=== PATIENT | male | born 1935 | race Caucasian/White ===

== ENCOUNTER → 2024-06-02 | Outpatient (CLI) | payer OTHER ==
[~2024-06-02] MED LIST: TRIA25CA
[2024-06-02 09:56] LABS: Urine Bacteria None Seen /hpf (None Seen)
[2024-06-02 10:49] LABS: Basophils # (auto) 0 10 ^3/uL (0-0.2); Eosinophils # (auto) 0.2 10 ^3/uL (0-0.8); Hemoglobin 13.1 g/dL (13.5-17.5); Mean Corpuscular Hgb Conc. 34.4 g/dL (32.0-36.0); Mean Corpuscular Volume 101.6 fL (80.0-100.0); Monocytes # (auto) 0.3 10 ^3/uL (0-1.3); Nucleated Red Blood Cells % 0.1 %; Red Blood Cells 3.74 10^6/uL (4.5-5.90); White Blood Cell 3.6 10^3/uL (4.4-10.8)
[2024-06-02 10:52] LABS: Basophils % (auto) 0.8 % (0.0-2.0); Eosinophils % (auto) 4.3 % (0.0-7.0); Lymphocytes # (auto) 1.3 10 ^3/uL (0.4-5.4); Lymphocytes % (auto) 34.5 % (10.0-50.0); Mean Corpuscular Hemoglobin 34.9 pg (28.0-32.0); Monocytes % (auto) 9.1 % (0.0-12.0); Neutrophils # (auto) 1.9 10 ^3/uL (1.6-8.6); Neutrophils % (auto) 51.3 % (37.0-80.0); Platelet Count (auto) 163 10^3/uL (140-450); Red Cell Distribution Width 13.6 % (11.8-14.3)
[2024-06-02 11:14] LABS: Alanine Aminotransferase 19 U/L (7-40); Alkaline Phosphatase 110 U/L (46-116); Anion Gap 9 (5-15); Aspartate Aminotransferase 19 U/L (13-40); Calcium 9.6 mg/dL (8.7-10.4); Carbon Dioxide 26 mmol/L (20-31); Chloride 107 mmol/L (98-107); Potassium 4.6 mmol/L (3.5-5.1); Sodium 142 mmol/L (136-145)
[2024-06-02 11:15] LABS: BUN/Creatinine Ratio 18.4 (10.0-20.0); Blood Urea Nitrogen 19 mg/dL (9-23); Glucose 103 mg/dL (74-106); Total Protein 6.7 g/dL (5.7-8.2)
[2024-06-02 11:16] LABS: Albumin 4.3 g/dL (3.2-4.8)
[2024-06-02 11:17] LABS: Bilirubin, Total 0.6 mg/dL (0.2-1.0)
[2024-06-02 12:15] LABS: Triglycerides 132 mg/dL (< 150)
[2024-06-02 12:16] LABS: LDL Cholesterol 52 mg/dL (< 100)
[2024-06-02 12:17] LABS: Cholesterol 108 mg/dL (< 200)
[2024-06-02 12:18] LABS: HDL Cholesterol 39 mg/dL (40-59)
[2024-06-02 16:02] LABS: Urine Blood Negative /uL (Negative); Urine Clarity Clear (Clear); Urine Color Light-Yellow (Yellow); Urine Mucus FEW (None Seen); Urine Protein, UAD Negative (Negative); Urine Specific Gravity 1.019 (1.001-1.035); Urine Squamous Epithelial Cell None Seen /hpf (<5); Urine Urobilinogen Normal (Negative); Urine WBC < 1 /HPF (0-3)
== END | disposition home or self-care (01) ==
LOC: LAB 09:44
PROVIDERS: ATTEND Internal Medicine
DX: I10 Essential (primary) hypertension (principal); I70.0 Atherosclerosis of aorta; E78.5 Hyperlipidemia, unspecified; R73.03 Prediabetes; Z00.01 Encounter for general adult medical examination with abnormal findings; Z83.3 Family history of diabetes mellitus
CPT/HCPCS: 36415; 80053; 80061; 81001; 83036; 84439; 84443; 85025

== ENCOUNTER → 2024-07-24 | Outpatient (CLI) | payer OTHER ==
[2024-07-24 11:56] LABS: Calcium 9.7 mg/dL (8.7-10.4); Chloride 107 mmol/L (98-107); Potassium 4.7 mmol/L (3.5-5.1); Sodium 143 mmol/L (136-145)
[2024-07-24 11:57] LABS: Anion Gap 8 (5-15); Carbon Dioxide 28 mmol/L (20-31)
[2024-07-24 12:02] LABS: BUN/Creatinine Ratio 17.9 (10.0-20.0); Blood Urea Nitrogen 19 mg/dL (9-23)
[2024-07-24 12:04] LABS: Glucose 110 mg/dL (74-106)
[2024-07-24 12:06] LABS: Folate (Folic Acid) 19.92 ng/mL (>5.38)
== END | disposition home or self-care (01) ==
LOC: LAB 10:37
PROVIDERS: ATTEND Internal Medicine
DX: I10 Essential (primary) hypertension (principal); D53.9 Nutritional anemia, unspecified; R94.4 Abnormal results of kidney function studies
CPT/HCPCS: 36415; 80048; 82607; 82746

== ENCOUNTER 2024-09-08 09:04 | Outpatient (CLI) | payer OTHER ==
[2024-09-08 09:52] LABS: Anion Gap 8 (5-15); Calcium 9.9 mg/dL (8.7-10.4); Carbon Dioxide 28 mmol/L (20-31); Potassium 4.6 mmol/L (3.5-5.1); Sodium 144 mmol/L (136-145)
[2024-09-08 09:54] LABS: Basophils # (auto) 0 10 ^3/uL (0-0.2); Eosinophils # (auto) 0.2 10 ^3/uL (0-0.8); Hemoglobin 13.3 g/dL (13.5-17.5); Monocytes # (auto) 0.3 10 ^3/uL (0-1.3); Platelet Count (auto) 150 10^3/uL (140-450); White Blood Cell 3.1 10^3/uL (4.4-10.8)
[2024-09-08 09:57] LABS: Basophils % (auto) 1.4 % (0.0-2.0); Eosinophils % (auto) 5.6 % (0.0-7.0); Lymphocytes # (auto) 1.6 10 ^3/uL (0.4-5.4); Mean Corpuscular Hemoglobin 34.8 pg (28.0-32.0); Mean Corpuscular Volume 99.3 fL (80.0-100.0); Monocytes % (auto) 8.9 % (0.0-12.0); Neutrophils % (auto) 33.1 % (37.0-80.0); Nucleated Red Blood Cells % 0.2 %; Red Blood Cells 3.82 10^6/uL (4.5-5.90); Red Cell Distribution Width 13.6 % (11.8-14.3)
[2024-09-08 09:58] LABS: BUN/Creatinine Ratio 19.6 (10.0-20.0); Blood Urea Nitrogen 22 mg/dL (9-23); Glucose 96 mg/dL (74-106); Triglycerides 106 mg/dL (< 150)
[2024-09-08 09:59] LABS: LDL Cholesterol 61 mg/dL (< 100)
[2024-09-08 10:00] LABS: Cholesterol 109 mg/dL (< 200)
[2024-09-08 10:03] LABS: Chloride 108 mmol/L (98-107); HDL Cholesterol 32 mg/dL (40-59)
== END 2024-09-08 17:00 | disposition home or self-care (01) ==
LOC: LAB 09:04
PROVIDERS: ATTEND Internal Medicine
DX: I10 Essential (primary) hypertension (principal); E78.2 Mixed hyperlipidemia; R73.03 Prediabetes; R94.4 Abnormal results of kidney function studies
CPT/HCPCS: 36415; 80048; 80061; 85025

== ENCOUNTER 2024-10-04 22:20 | Inpatient (IN) | payer OTHER ==
[~2024-10-04] VITALS: Ht 177.8 cm; Wt 84.9 kg
--- NOTE | 2024-10-04 22:42 | ECG ---
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
[2024-10-04 22:59] LABS: Hematocrit 36.4 % (41.0-53.0); Hemoglobin 12.6 g/dL (13.5-17.5); Mean Corpuscular Hemoglobin 34.0 pg (28.0-32.0); Mean Corpuscular Volume 98.2 fL (80.0-100.0); Nucleated Red Blood Cells % 0.0 %
[2024-10-04 23:14] LABS: INR 1.18 (0.9-1.15); Partial Thromboplastin Time 29.6 SEC (24.5-34.5); Prothrombin Time 12.3 sec (9.3-11.8)
[2024-10-04 23:15] LABS: Alanine Aminotransferase 16 U/L (7-40); Albumin 4.2 g/dL (3.2-4.8); Alkaline Phosphatase 83 U/L (46-116); Anion Gap 15 (5-15); BUN/Creatinine Ratio 24.0 (10.0-20.0); Blood Urea Nitrogen 23 mg/dL (9-23); Calcium 8.7 mg/dL (8.7-10.4); Chloride 101 mmol/L (98-107); Potassium 3.7 mmol/L (3.5-5.1); Total Protein 6.4 g/dL (5.7-8.2)
--- NOTE | 2024-10-04 23:17 | DVH ---
CHEST RADIOGRAPH Indication: Shortness of breath Technique: Single frontal view of the chest was obtained COMPARISON: None FINDINGS: Lines and Tubes: None Lungs: Mild bibasilar subsegmental atelectasis/consolidation. Pleura: No effusion. No pneumothorax. Cardiomediastinal contours: Unremarkable IMPRESSION: Mild bibasilar subsegmental atelectasis/consolidation.
[2024-10-04 23:18] LABS: Bilirubin, Total 1.5 mg/dL (0.2-1.0); Carbon Dioxide 17 mmol/L (20-31); Glucose 144 mg/dL (74-106); Sodium 133 mmol/L (136-145)
[2024-10-04 23:35] LABS: Urine Protein, UAD 1+ (Negative)
[2024-10-04] MEDS: AZITHROMYCIN 500MG/ 250ML 250 ML IV ONE (23:52)
[2024-10-05] MEDS ORDERED: AMPICILLIN & SULBACTAM SODIUM 3 GM in SODIUM CHL 0.9% 100 ML IV SCH
[2024-10-05] MEDS: cefTRIAXone 1GM/50ML D5W 50 ML IV ONE ×2 (00:39→00:40)
--- NOTE | 2024-10-05 02:19 | ED.PDOC ---
History of Present Illness HPI Comments This patient is an 89-year-old male who was brought by ambulance to the facility today due to complaints of generalized weakness and urine retention issues. Patient states he has not passed much urine for the past four days. Patient denies any fever nausea or vomiting. Patient's abdomen appears to be distended and additionally, patient appears to be in poor overall health. Chief Complaint: General Weakness Time Seen by MD: 02:10 Reviewed Notes: Nurses Notes, Medications, Allergies Allergies: Coded Allergies: NO KNOWN ALLERGIES (Unverified , 05/16/11) Home Meds Reported Medications Hydrochlorothiazide W/Triamter (Hctz/Triamterene) 1 Cap Cap 05/16/11 Information Source: Patient, Emergency Med Personnel Mode of Arrival: EMS Severity: Moderate Timing: Hours Duration: Since onset Prehospital treatment: 12 Lead EKG, Accucheck, Fmd Teacher Past Medical History PAST MEDICAL HISTORY: HTN Surgical History: Denies all surgeries Family History Family History: Reviewed,noncontributory to illness, No family hx of Cancer, No family hx of DM, No family hx of Heart jackie, No family hx of HTN, No family hx ofKidney jackie, No family hx of Liver jackie, No family hx of Lung jackie, No family hx of Stroke Social History Smoker: Cigarettes Alcohol: Denies ETOH Use Drugs: Denies Drug Use Lives In: Home Constitutional: reports: weakness; denies: chills, diaphoresis, fatigue, fever, malaise, sweats, others EENTM: denies: blurred vision, double vision, ear bleeding, ear discharge, ear drainage, ear pain, ear ringing, eye pain, eye redness, hearing loss, mouth pain, mouth swelling, nasal discharge, nose bleeding, nose congestion, nose pain, photophobia, tearing, throat pain, throat swelling, voice changes, others Respiratory: denies: cough, hemoptysis, orthopnea, SOB at rest, shortness of breath, SOB with excertion, stridor, wheezing, others Cardiovascular: denies: chest pain, dizzy spells, diaphoresis, Dyspnea on exertion, edema, irregular heart beat, left arm pain, lightheadedness, palpitations, PND, syncope, others Gastrointestinal: reports: abdomen distended; denies: abdominal pain, blood streaked bowels, constipated, diarrhea, dysphagia, difficulty swallowing, hematemesis, melena, nausea, poor appetite, poor fluid intake, rectal bleeding, rectal pain, vomiting, others Genitourinary: reports: others (Urine retention); denies: burning, dysuria, fla nk pain, frequency, hematuria, incontinence, penile discharge, penile sore, pain, testicle pain, testicle swelling, urgency Neurological: denies: dizziness, fainting, headache, left sided numbness, left sided weakness, numbness, paresthesia, pre-existing deficit, right sided numbness, right sided weakness, seizure, speech problems, tingling, tremors, weakness, others Musculoskeletal: denies: back pain, gout, joint pain, joint swelling, muscle pain, muscle stiffness, neck pain, others Integumetry: denies: bruises, change in color, change in hair/nails, dryness, laceration, lesions, lumps, rash, wounds, others Allergic/Immunocompromised: denies: Difficulty Healing, Frequent Infections, Hives, Itching, others Hematologic/Lymphatic: denies: anemia, blood clots, easy bleeding, easy bruising, swollen glands, others Endocrine: denies: excessive hunger, excessive sweating, excessive thirst, excessive urination, flushing, intolerance to cold, intolerance to heat, unexplained weight gain, unexplained weight loss, others Psychiatric: denies: anxiety, bipolar disorder, depression, hopeless, panic disorder, schizophrenia, sleepless, suicidal, others All Other Systems: Reviewed and Negative (Comprehensive review of systems are negative unless stated in HPI) Physical Exam General Appearance: Moderate Distress (Moderate distress due to urine retention issues. Patient appears to be in poor overall health.), Normal HEENT: Normal ENT Inspection, Pharynx Normal, TMs Normal Neck: Full Range of Motion, Non-Tender, Normal, Normal Inspection Respiratory: Chest Non-Tender, Lungs Clear, No Accessory Muscle Use, No Respiratory Distress, Normal Breath Sounds Cardiovascular: No Edema, No JVD, No Murmur, No Gallop, Normal Peripheral Pulses, Regular Rate/Rhythm Breast Exam: Deferred Gastrointestinal: Other (Distended stomach was appreciated with tenderness to palpation throughout the overlying bladder. No signs of trauma.) Genitalia: Deferred Pelvic: Deferred Rectal: Deferred Extremities: No calf tenderness, Normal capillary refill, Normal inspection, Normal range of motion, Non-tender, No pedal edema Neurologic: Alert, No Motor Deficits, Normal Affect, Normal Mood, No Sensory Deficits Cerebellar Function: NOT DONE Reflexes: NOT DONE Skin: Dry, Normal Color, Warm Lymphatic: No Adenopathy Was a procedure done? Was a procedure done?: No EKG EKG : Pulse Rate (adult): 104 [place]: Normal Cardiac Rhythm: ST, PAC's Block: None Hypertrophy: None ST: Normal Differential Dx Considerations may include: Electrolyte imbalance, viral syndrome, dehydration, urethral obstruction, nephrolithiasis, cystitis, pyelonephritis, urinary tract infection, acute coronary syndrome, NM, bladder outlet obstruction, among others X-Ray, Labs, Meds, VS Vital Signs Date Time Temp Pulse Resp B/P (MAP) Pulse Ox O2 Delivery O2 Flow Rate FiO2 10/05/24 02:19 104 10/05/24 02:01 79 23 115/50 (71) 93 10/05/24 01:19 88 10/05/24 00:00 94 18 153/72 (99) 93 10/04/24 22:46 98.4 98 18 133/61 (85) 93 98.4 10/04/24 22:38 104 10/04/24 22:30 98.7 102 20 129/72 (91) 92 98.7 10/04/24 22:30 Room Air* 0 21 Lab Test 10/05/24 01:28 10/04/24 23:38 10/04/24 22:55 10/04/24 22:43 Range/Units Troponin I High Sensitivity 1247 *H 519 *H 173 *H </=54 ng/L Urine Color Colorless Yellow Urine Clarity Turbid H Clear Urine pH 5.5 5.0-9.0 Urine Specific [place] 1.013 1.001-1.035 Urine Protein 1+ H Negative Urine Ketones Trace Negative Urine Blood 2+ H Negative /uL Urine Nitrite Negative Negative Urine Bilirubin Negative Negative Urine Urobilinogen Normal Negative mg/dL Urine Leukocyte Esterase 2+ Negative /uL Urine RBC 3 0 - 3 /hpf Urine Microscopic WBC 41 H 0-3 /HPF Urine Squamous Epithelial Cells Few <5 /hpf Urine Bacteria Few H None Seen /hpf Urine Glucose Normal Normal mg/dL White Blood Count 8.3 4.4-10.8 10^3/uL Red Blood Count 3.71 L 4.5-5.90 10^6/uL Hemoglobin 12.6 L 13.5-17.5 g/dL Hematocrit 36.4 L 41.0-53.0 % Mean Corpuscular Volume 98.2 80.0-100.0 fL Mean Corpuscular Hemoglobin 34.0 H 28.0-32.0 pg Mean Corpuscular Hemoglobin Concent 34.7 32.0-36.0 g/dL Red Cell Distribution Width 13.0 11.8-14.3 % Platelet Count 137 L 140-450 10^3/uL Mean Platelet Volume 7.9 6.9-10.8 fL Neutrophils (%) (Auto) 92.4 H 37.0-80.0 % Lymphocytes (%) (Auto) 4.9 L 10.0-50.0 % Monocytes (%) (Auto) 2.6 0.0-12.0 % Eosinophils (%) (Auto) 0.0 0.0-7.0 % Basophils (%) (Auto) 0.1 0.0-2.0 % Neutrophils # (Auto) 7.7 1.6-8.6 10 ^3/uL Lymphocytes # (Auto) 0.4 0.4-5.4 10 ^3/uL Monocytes # (Auto) 0.2 0-1.3 10 ^3/uL Eosinophils # (Auto) 0 0-0.8 10 ^3/uL Basophils # (Auto) 0 0-0.2 10 ^3/uL Nucleated Red Blood Cells 0.0 % Prothrombin Time 12.3 H 9.3-11.8 sec Prothrombin Time INR 1.18 H 0.9-1.15 Activated Partial Thromboplast Time 29.6 24.5-34.5 SEC D-Dimer, Quantitative 2.15 H 0.0-0.49 mg/L FEU Sodium Level 133 L 136-145 mmol/L Potassium Level 3.7 3.5-5.1 mmol/L Chloride Level 101 98-107 mmol/L Carbon Dioxide Level 17 L 20-31 mmol/L Anion Gap 15 5-15 Blood Urea Nitrogen 23 9-23 mg/dL Creatinine 0.96 0.700-1.30 mg/dL Glomerular Filtration Rate Calc 76 >90 mL/min BUN/Creatinine Ratio 24.0 H 10.0-20.0 Serum Glucose 144 H 74-106 mg/dL Calcium Level 8.7 8.7-10.4 mg/dL Total Bilirubin 1.5 H 0.2-1.0 mg/dL Aspartate Amino Transferase (AST) 24 13-40 U/L Alanine Aminotransferase (ALT) 16 7-40 U/L Alkaline Phosphatase 83 46-116 U/L B-Type Natriuretic Peptide 195.62 0-100 pg/mL Total Protein 6.4 5.7-8.2 g/dL Albumin 4.2 3.2-4.8 g/dL Current Medications Medications (Trade) Dose Ordered Sig/Bobby Route Start Time Stop Time Status Last Admin Azithromycin 250 ml @ 125 mls/hr ONCE ONCE IV 10/04/24 23:45 10/05/24 01:44 DC 10/04/24 23:52 Ceftriaxone Sodium 50 ml @ 100 mls/hr ONCE ONCE IV 10/05/24 00:45 10/05/24 01:14 DC 10/05/24 00:39 [place] [address] Ph: [phone] DIAGNOSTIC IMAGING Diagnostic Imaging Report : [id number] Signed PATIENT: DOYLE SAUL ACCT: [id number] UNIT: [id number] : 1935 LOC: ER ROOM / BED: / AGE / SEX: 89 / M ADM STATUS: REG ER SERVICE 27 ORDERING PHYSICIAN: INGRID CUENCA PAC PROCEDURE(s): CXRP - CHEST PORTABLE REASON: Shortness of breath ORDER NUMBER(s): [id number], ACCESSION NUMBER(s): [id number] CHEST RADIOGRAPH Indication: Shortness of breath Technique: Single frontal view of the chest was obtained COMPARISON: None FINDINGS: Lines and Tubes: None Lungs: Mild bibasilar subsegmental atelectasis/consolidation. Pleura: No effusion. No pneumothorax. Cardiomediastinal contours: Unremarkable IMPRESSION: Mild bibasilar subsegmental atelectasis/consolidation. ATED BY: FRANCISCO JAVIER CHAUDHARI MD DICTATED DATE/TIME: 10/04/242314 SIGNED BY: FRANCISCO JAVIER CHAUDHARI MD SIGNED DATE/TIME: 10/04/242314 CC: X-Ray, Labs, Meds, VS Comment All studies performed the ED were evaluated by me personally. Serum studies revealed a hyponatremia, elevated troponins as well as elevated D-dimer. Urinalysis confirmed a large urinary tract infection. Chest x-ray revealed mild bibasilar subsegmental atelectasis/consolidation. Latest EKG revealed a sinus rhythm with a rate of 88. Borderline left axis deviation with the abnormal R- wave progression and early transition noted. OK interval 170 eight and QT interval of 372. Elevated troponins became concerning as the initial was 173, 2nd was 519 at 3rd was 1247. Contacted Dr. Murrell and discuss the EKG studies as well as elevated troponins. As the patient's D-dimer was elevated, we had already initiated a CT angio. He advised that if a PE exist, patient should be started on a heparin drip. Patient will be admitted for multiple comorbidities including cardiology evaluations and management of his urinary concerns to name a few. Time of 1ST Reevaluation: 02:29 Reevaluation 1ST: Improved Consultation: PCP, Cardiology, Urology Patient Education/Counseling: Diagnosis, Treatment Family Education/Counseling: Diagnosis, Treatment, No Family Present SEPSIS Sepsis Screen Date sepsis recognized/suspect: Oct 04, 2024 Time Sepsis recognized/suspect: 2325 Recent Procedure: No On Antibiotic Therapy: No Respiratory Rate >20: No Heart Rate >90: Yes Temp<36 C (96.8 F) or >38.3 C: No SBP <90 or MAP <65 mmHG: No New Acute Mental Status Change: No Is the patient on CPAP, BIPAP,: No Physician Orders Chest Portable (10/04/24 22:28) Heplock Iv (10/04/24 22:28) Fmd Teacher (10/04/24 22:28) Insert Cevallos Catheter QSHIFT (10/04/24 22:40) Ct Angio Chest Contrast (10/05/24 02:14) Vital Signs Date Time Temp Pulse Resp B/P (MAP) Pulse Ox O2 Delivery O2 Flow Rate FiO2 10/05/24 02:19 104 10/05/24 02:01 79 23 115/50 (71) 93 10/05/24 01:19 88 10/05/24 00:00 94 18 153/72 (99) 93 10/04/24 22:46 98.4 98 18 133/61 (85) 93 98.4 10/04/24 22:38 104 10/04/24 22:30 98.7 102 20 129/72 (91) 92 98.7 10/04/24 22:30 Room Air* 0 21 Laboratory Tests Test 10/04/24 22:43 White Blood Count 8.3 10^3/uL (4.4-10.8) Medications Medications Dose Ordered Sig/Bobby Route Start Time Stop Time Status Last Admin Dose Admin Azithromycin 250 ml @ 125 mls/hr ONCE ONCE IV 10/04/24 23:45 10/05/24 01:44 DC 10/04/24 23:52 Ceftriaxone Sodium 50 ml @ 100 mls/hr ONCE ONCE IV 10/05/24 00:45 10/05/24 01:14 DC 10/05/24 00:39 Departure 1 Departure Time of Disposition: 02:31 Impression: Primary Impression: Pneumonia Additional Impressions: Urinary tract infection Elevated d-dimer Elevated troponin Hyponatremia Bladder outlet obstruction Disposition: ADMITTED INPATIENT Condition: Fair Discharged With: Self Critical Care Note Critical Care Time?: Yes (1 hr-critical care time only) Critical care comment: Due to the high probability of a clinically significant and possibly life- threatening deterioration, the patient required my highest level of preparedness to intervene emergently and therefore, I personally provided 1 hour of critical care time exclusive of time spent on separate billable procedures. This critical care time includes, but isn't limited to, obtaining additional history, re-examination of the patient, re-examination of pulse oximetry, ordering and reviewing of studies, arrangement of an urgent treatment plan with the development of a long-term management plan, evaluation of the patient's response to treatment as well as frequent reassessments and discussions with other providers. Stability Stability form required: No Heart Score Heart Score: Heart Score Response (Comments) Value History Slightly Suspicious 0 EKG Repolarization Disturb 1 Age >65 2 Risk Factors >3 or Hx ASHD 2 Troponin >3 x's Normal limit 2 Total 7 I personally scribed for INGRID CUENCA PAC ([email or web address]) on 10/05/24 at 02:19. Electronically submitted by Tito Galindo ([email or web address]). INGRID CUENCA PAC Oct 05, 2024 02:19
[2024-10-05] MEDS: ENOXAPARIN SOD 40 MG/0.4 ML SYRINGE SC ONE (02:33)
[2024-10-05] MEDS: IOHEXOL 300 MG/ML 100ML BOTTLE IJ ONE (02:33)
--- NOTE | 2024-10-05 03:13 | DVH ---
INDICATION: Elevated D-dimer TECHNIQUE: Multidetector CTA of the chest was performed of the chest with 100 cc of intravenous contr ast. PULMONARY ANGIOGRAPHY PROTOCOL was utilized using a bolus-tracking technique centered on the lashae n pulmonary artery. Axial, coronal and sagittal multiplanar and MIP reformats were performed. Radiation Dose Information: CT Dose: CTDI volume is 28.15 mGy. Dose-length product is 1209.99 mGy*cm The dose indicators for CT are the volume Computed Tomography (CT) Dose Index (CTDIvol) and the Dose Length Product (DLP), and are measured in units of mGy and mGy-cm, respectively. These indicators are not patient dose, but values generated from the CT scanner acquisition factors. The report includes radiation exposure data for exposures received during this examination. Comparison: Chest x-ray same day Findings: Evaluation of the pulmonary artery demonstrates no evidence of focal filling defect to suggest pulmon arley embolus. Thoracic aorta appears normal in caliber and contour. The pulmonary arteries are promin ent. There are coronary artery calcifications. The heart appears enlarged. Assessment of the pulmonar y parenchyma is limited by motion, however there is a large calcified nodule in the right upper lobe compatible with granuloma. Subpleural bands are noted. No sizable effusion. No focal consolidation o r pneumothorax. Visualized portions of the upper abdomen demonstrate severe atherosclerotic calcifica tions. IMPRESSION: 1. No evidence of pulmonary embolus. Secondary findings of pulmonary arterial hypertension.
[2024-10-05] MEDS ORDERED: MORPHINE SULFATE INJ 2 MG/ml SYRG IV PRN (03:30)
[2024-10-05] MEDS ORDERED: ONDANSETRON HCL 4 MG/2 ML VIAL IV PRN (03:30)
[2024-10-05] MEDS ORDERED: ACETAMINOPHEN 325 MG TAB PO PRN (03:30)
[2024-10-05] MEDS ORDERED: NITROGLYCERIN 0.4 MG SL TAB SL PRN (03:30)
[2024-10-05] MEDS ORDERED: ALBUTEROL SULF 2.5 MG/0.5ML(0.5%) NEB SOLN NEB PRN (03:30)
[2024-10-05] MEDS ORDERED: HYDROcodone-ACET 5/325MG TAB PO PRN (03:30)
--- NOTE | 2024-10-05 03:30 | DVHHP2 ---
History of Present Illness Reason for Visit: Urinary retention History of Present Illness 89-year-old male initially presented with complaints of urinary retention. He states having urinary retention for the past two days. He also reports developing dizziness, chills and shortness for breath. Denies any chest pain. No nausea or vomiting. No other acute complaints. Past Medical History Hypertension and dyslipidemia Past Surgical History Denies Family History Noncontributory Smoke: <1 pack per day ALCOHOL: none Drugs: None Review of Systems Review of Systems Review of systems are currently negative otherwise addressed in HPI. Allergies: Coded Allergies: NO KNOWN ALLERGIES (Unverified , 05/16/11) Medications Current Medications Medications Dose Ordered Sig/Bobby Route Start Time Stop Time Status Last Admin Dose Admin Ceftriaxone Sodium 50 ml @ 100 mls/hr DAILY@09 IV 10/05/24 09:00 UNV Azithromycin 250 ml @ 125 mls/hr DAILY IV 10/05/24 10:00 UNV Nifedipine 30 mg DAILY PO 10/05/24 10:00 UNV Lisinopril 40 mg DAILY PO 10/05/24 10:00 UNV Atorvastatin Calcium 10 mg HS PO 10/05/24 22:00 UNV Albuterol 2.5 mg Q6HPRN PRN NEB 10/05/24 03:30 UNV Enoxaparin Sodium 40 mg DAILY SC 10/05/24 10:00 UNV Acetaminophen 650 mg Q6HP PRN PO 10/05/24 03:30 UNV Nitroglycerin 0.4 mg Q5MINP PRN SL 10/05/24 03:30 UNV Morphine Sulfate 2 mg Q30M PRN IV 10/05/24 03:30 UNV Exam Vital Signs Vital Signs Date Time Temp Pulse Resp B/P (MAP) Pulse Ox O2 Delivery O2 Flow Rate FiO2 10/05/24 02:19 104 10/05/24 02:01 23 115/50 (71) 93 10/04/24 22:46 98.4 98.4 10/04/24 22:30 Room Air* 0 21 Exam Gen: 89-year-old male in mild distress Skin: Warm, dry, normal color and texture, no rash. HEENT: Normocephalic atraumatic, mucous membranes moist and pink. Neck: Cervical and supraclavicular nodes normal without enlargement, trachea is midline, thyroid gland is normal without masses. Pulmonary: Clear to auscultation and percussion bilaterally. Cardiac: Regular rate and rhythm. No murmur : Cevallos catheter in place Abdomen: Soft, nontender, nondistended, bowel sounds present all 4 quadrants, no guarding, no rigidity, no organomegaly. Extremities: No cyanosis, clubbing, no edema Neuro: Cranial nerves II through XII grossly intact, normal affect and speech, no focal motor deficits. Labs/Xrays ORDERING PHYSICIAN: INGRID CUENCA PAC PROCEDURE(s): CXRP - CHEST PORTABLE REASON: Shortness of breath ORDER NUMBER(s): [id number], ACCESSION NUMBER(s): [id number] CHEST RADIOGRAPH Indication: Shortness of breath Technique: Single frontal view of the chest was obtained COMPARISON: None FINDINGS: Lines and Tubes: None Lungs: Mild bibasilar subsegmental atelectasis/consolidation. Pleura: No effusion. No pneumothorax. Cardiomediastinal contours: Unremarkable IMPRESSION: Mild bibasilar subsegmental atelectasis/consolidation. Labs Test 10/05/24 01:28 10/04/24 22:55 10/04/24 22:43 Range/Units Troponin I High Sensitivity 1247 *H </=54 ng/L Urine Color Colorless Yellow Urine Clarity Turbid H Clear Urine pH 5.5 5.0-9.0 Urine Specific [place] 1.013 1.001-1.035 Urine Protein 1+ H Negative Urine Ketones Trace Negative Urine Blood 2+ H Negative /uL Urine Nitrite Negative Negative Urine Bilirubin Negative Negative Urine Urobilinogen Normal Negative mg/dL Urine Leukocyte Esterase 2+ Negative /uL Urine RBC 3 0 - 3 /hpf Urine Microscopic WBC 41 H 0-3 /HPF Urine Squamous Epithelial Cells Few <5 /hpf Urine Bacteria Few H None Seen /hpf Urine Glucose Normal Normal mg/dL White Blood Count 8.3 4.4-10.8 10^3/uL Red Blood Count 3.71 L 4.5-5.90 10^6/uL Hemoglobin 12.6 L 13.5-17.5 g/dL Hematocrit 36.4 L 41.0-53.0 % Mean Corpuscular Volume 98.2 80.0-100.0 fL Mean Corpuscular Hemoglobin 34.0 H 28.0-32.0 pg Mean Corpuscular Hemoglobin Concent 34.7 32.0-36.0 g/dL Red Cell Distribution Width 13.0 11.8-14.3 % Platelet Count 137 L 140-450 10^3/uL Mean Platelet Volume 7.9 6.9-10.8 fL Neutrophils (%) (Auto) 92.4 H 37.0-80.0 % Lymphocytes (%) (Auto) 4.9 L 10.0-50.0 % Monocytes (%) (Auto) 2.6 0.0-12.0 % Eosinophils (%) (Auto) 0.0 0.0-7.0 % Basophils (%) (Auto) 0.1 0.0-2.0 % Neutrophils # (Auto) 7.7 1.6-8.6 10 ^3/uL Lymphocytes # (Auto) 0.4 0.4-5.4 10 ^3/uL Monocytes # (Auto) 0.2 0-1.3 10 ^3/uL Eosinophils # (Auto) 0 0-0.8 10 ^3/uL Basophils # (Auto) 0 0-0.2 10 ^3/uL Nucleated Red Blood Cells 0.0 % Prothrombin Time 12.3 H 9.3-11.8 sec Prothrombin Time INR 1.18 H 0.9-1.15 Activated Partial Thromboplast Time 29.6 24.5-34.5 SEC D-Dimer, Quantitative 2.15 H 0.0-0.49 mg/L FEU Sodium Level 133 L 136-145 mmol/L Potassium Level 3.7 3.5-5.1 mmol/L Chloride Level 101 98-107 mmol/L Carbon Dioxide Level 17 L 20-31 mmol/L Anion Gap 15 5-15 Blood Urea Nitrogen 23 9-23 mg/dL Creatinine 0.96 0.700-1.30 mg/dL Glomerular Filtration Rate Calc 76 >90 mL/min BUN/Creatinine Ratio 24.0 H 10.0-20.0 Serum Glucose 144 H 74-106 mg/dL Calcium Level 8.7 8.7-10.4 mg/dL Total Bilirubin 1.5 H 0.2-1.0 mg/dL Aspartate Amino Transferase (AST) 24 13-40 U/L Alanine Aminotransferase (ALT) 16 7-40 U/L Alkaline Phosphatase 83 46-116 U/L B-Type Natriuretic Peptide 195.62 0-100 pg/mL Total Protein 6.4 5.7-8.2 g/dL Albumin 4.2 3.2-4.8 g/dL Assessment/Plan Assessment/Plan Assessment Community-acquired pneumonia NSTEMI Urinary tract infection Hypertension Elevated D-dimer rule out PE Plan Admit the patient to telemetry to the hospitalist Urology consultation Cardiology consult CT angiogram pending Rocephin/azithromycin Med nebs Resume home medications Continue treatment per orders. Plan discussed with: Patient My Orders Orders - MIKI YU M AGACNP Procedure Category Date Status Time Ceftriaxone 1gm/50ml PHA 10/05/24 Logged D5w (Rocephin) 09:00 Azithromycin 500mg/ PHA 10/05/24 Logged 250ml (Zithromax 50 10:00 Nifedipine Er PHA 10/05/24 Logged (Procardia Xl 10:00 Lisinopril Tablet PHA 10/05/24 Logged (Zestril Tablet) 10:00 Atorvastatin (Lipitor) PHA 10/05/24 Logged 22:00 Albuterol Medneb PHA 10/05/24 Logged (Ventolin Medneb) 03:30 Aspirin Tablet PHA 10/05/24 Logged 10:00 Urine Bacterial KATERINA 10/05/24 Logged Culture 03:16 Lactic Acid W/ Reflex LAB 10/05/24 Logged Order 03:16 * Urology Consult CONS 10/05/24 Transmitted 03:16 * Cardiology Consult CONS 10/05/24 Transmitted 03:16 Admit ADMIT 10/05/24 Transmitted 03:16 Hydrocodone-Acet PHA 10/05/24 Logged 5/325mg Tab ([place] 03:30 Ondansetron Hcl PHA 10/05/24 Logged (Zofran) 03:30 Enoxaparin Sodium PHA 10/05/24 Logged (Lovenox) 10:00 Complete Blood Count LAB 10/06/24 Verified 04:00 Comprehensive LAB 10/06/24 Verified Metabolic Panel 04:00 Cardiac DIET 10/05/24 Transmitted Diet-2gna,Lofat,Lochol Breakfast Echo 2d Mode Cardiac US 10/05/24 Logged DOP 03:16 Condition: Fair DEREJE 10/05/24 In Process 03:16 Acetaminophen Tablet PHA 10/05/24 Logged (Tylenol Tablet) 03:30 Bedrest With Bathroom [facility] 10/05/24 In Process Privileg 03:16 Nitroglycerin [facility] 10/05/24 Logged Sublingual (Ntrostat 03:30 Morphine Sulfate [facility] 10/05/24 Logged Injection 03:30 Stat Ekg For Chest [facility] 10/05/24 In Process Pain 03:16 Notify Md Of Changes [facility] 10/05/24 In Process From Base 03:16 Director Internal Audit For [facility] 10/05/24 In Process 24 Hours 03:16 Emergency Dysrhythmia [facility] 10/05/24 In Process Protocol 03:16 Rhythm Strips Once [facility] 10/05/24 In Process Every Shift 03:16 Oxygen By Nasal RT 10/05/24 Transmitted Cannula 03:16 Thyroid Stimulating LAB 10/05/24 Transmitted Hormone 03:24 Lipid Panel LAB 10/05/24 Transmitted 03:24 Date of Service: Oct 05, 2024 Billing Provider: MIKI YU Common Visit Codes: [id number] INP/OBS CARE (HIGH) MIKI YU Oct 05, 2024 03:30
[2024-10-05 03:40] VITALS: BP 124/53; PULSE 80; RESP 18; TEMP 98.4; O2SAT 94
[2024-10-05 04:00] LABS: Triglycerides 95 mg/dL (< 150)
[2024-10-05 04:02] LABS: Cholesterol 102 mg/dL (< 200)
[2024-10-05 04:04] LABS: HDL Cholesterol 33 mg/dL (40-59)
[2024-10-05 06:30] VITALS: O2SAT 94
--- NOTE | 2024-10-05 08:38 | DVHINCON2 ---
DANIEL AUSTIN [facility] 10/05/24 0838: Date Seen: Oct 05, 2024 Referring Physician VONDA Kiran Reason for Consultation Elevated trop History of Present Illness This is a pleasant 89-year-old man who presented to the emergency room with a chief complaint of urinary retention for four days. The patient complains of generalized weakness associated with urinary retention, chills, some tremors, and slight dizziness. Denies chest pain, palpitations, diaphoresis, or syncopal events. Cardiology consulted given trending troponin levels with latest >1,000 ng/L. He underwent multiple 12 lead electrocardiograms revealing a sinus rhythm with T-wave inversion to lead V4 and infrequent PACs. Denies any significant medical history for cardiovascular disease. Significant medical history includes hypertension, dyslipidemia, peripheral neuropathy, and tobacco use. Past Medical History Past medical history reviewed. No other significant than mentioned above. Past Surgical History Past Surgical history reviewed. No other significant than mentioned above. Family History Family history reviewed. Social History Denies the use of illicit drugs and alcohol. Admits to tobacco use. Allergies: Coded Allergies: NO KNOWN ALLERGIES (Unverified , 05/16/11) Home Meds Reported Medications Hydrochlorothiazide W/Triamter (Hctz/Triamterene) 1 Cap Cap 05/16/11 Home Meds Home medications reviewed. Current Medications Current Medications Medications (Trade) Dose Ordered Sig/Bobby Route PRN Reason Start Time Stop Time Status Last Admin Ampicillin Sodium/ Sulbactam Sodium 3 gm/Sodium Chloride 100 ml @ 100 mls/hr Q6HR IV 10/05/24 00:00 10/05/24 00:37 DC Ceftriaxone Sodium 50 ml @ 100 mls/hr DAILY@09 IV 10/05/24 09:00 Azithromycin 250 ml @ 125 mls/hr DAILY IV 10/05/24 10:00 Nifedipine (Procardia Xl (Time-Release)) 30 mg DAILY PO 10/05/24 10:00 Lisinopril (Zestril Tablet) 40 mg DAILY PO 10/05/24 10:00 Atorvastatin Calcium (Lipitor) 10 mg HS PO 10/05/24 22:00 Albuterol (Ventolin Medneb) 2.5 mg Q6HPRN PRN NEB SHORTNESS OF BREATH 10/05/24 03:30 Aspirin 162 mg DAILY PO 10/05/24 10:00 Acetaminophen/ Hydrocodone Bitart ([place] 5/325MG Tab) 1 tab Q4HP PRN PO MODERATE PAIN (4-6 PAIN SCALE) 10/05/24 03:30 Ondansetron HCl (Zofran) 4 mg Q4HP PRN IV NAUSEA / VOMITING 10/05/24 03:30 Enoxaparin Sodium (Lovenox) 40 mg DAILY SC 10/06/24 10:00 Acetaminophen (Tylenol Tablet) 650 mg Q6HP PRN PO PAIN SCALE 1-3 OR TEMP>100.4 10/05/24 03:30 Nitroglycerin (Ntrostat Sublingual) 0.4 mg Q5MINP PRN SL FOR CHEST PAIN 10/05/24 03:30 Morphine Sulfate 2 mg Q30M PRN IV FOR CHEST PAIN 10/05/24 03:30 Review of Systems Constitutional: Generalized weakness, tremors, chills Ears, Nose, & Throat: No symptom reported Eyes: No symptom reported Neurological: No symptoms reported Pulmonary/Respiratory: No symptom reported Cardiovascular: No symptom reported Gastrointestinal: No symptom reported Genitourinary: Urinary retention Musculoskeletal: No symptom reported Skin: No symptom reported Psychiatric: No symptom reported Endocrine: No symptom reported Hemotologic/Lymphatic: No symptom reported Vital Signs Vital Signs Date Time Temp Pulse Resp B/P (MAP) Pulse Ox O2 Delivery O2 Flow Rate FiO2 10/05/24 08:00 62 10/05/24 06:30 94 Room Air 10/05/24 06:30 0 21 10/05/24 06:00 24 137/81 (99) 10/05/24 03:40 98.4 98.4 Physical Exam General Appearance: Cooperative. Well developed. Well nourished. In no acute distress Head Exam: Normal inspection Neck Exam: Normal inspection. Non-tender. Normal alignment Pulmonary/Respiratory: Chest non-tender. Somewhat diminished bilateral breath sounds Cardiovascular/Chest: Regular rate and rhythm. S1, S2. NSR. No murmurs. No JVD. Peripheral Pulses: 2+ Radial (R). 2+ Radial (L). 2+ Pedal (R). 2+ Pedal (L) Abdominal Exam: Normal bowel sounds. Soft. Nontender. No hepatospenomegaly. No masses Ankle Exam: Negative ankle edema Lower extremities: Negative lower extremity edema Neuro/Mental Status: A&O x3. Coherent Thoughts/Psych: Normal thought pattern. Appropriate mood and affect. Good judgement and insight Appearance: In no acute distress Skin Exam: Normal inspection. Normal color. Warm. Dry Labs/Diagnostic Data Labs Test 10/05/24 08:28 10/05/24 01:28 10/04/24 23:38 10/04/24 22:55 Range/Units Lactic Acid Level 1.3 0.4-2.0 mmol/L Triglycerides Level 95 < 150 mg/dL Cholesterol Level 102 < 200 mg/dL LDL Cholesterol 53 < 100 mg/dL HDL Cholesterol 33 L 40-59 mg/dL Thyroid Stimulating Hormone (TSH) 1.36 0.55-4.78 uIU/mL Urine Color Colorless Yellow Urine Clarity Turbid H Clear Urine pH 5.5 5.0-9.0 Urine Specific [place] 1.013 1.001-1.035 Urine Protein 1+ H Negative Urine Ketones Trace Negative Urine Blood 2+ H Negative /uL Urine Nitrite Negative Negative Urine Bilirubin Negative Negative Urine Urobilinogen Normal Negative mg/dL Urine Leukocyte Esterase 2+ Negative /uL Urine RBC 3 0 - 3 /hpf Urine Microscopic WBC 41 H 0-3 /HPF Urine Squamous Epithelial Cells Few <5 /hpf Urine Bacteria Few H None Seen /hpf Urine Glucose Normal Normal mg/dL Test 10/04/24 22:43 Range/Units White Blood Count 8.3 4.4-10.8 10^3/uL Red Blood Count 3.71 L 4.5-5.90 10^6/uL Hemoglobin 12.6 L 13.5-17.5 g/dL Hematocrit 36.4 L 41.0-53.0 % Mean Corpuscular Volume 98.2 80.0-100.0 fL Mean Corpuscular Hemoglobin 34.0 H 28.0-32.0 pg Mean Corpuscular Hemoglobin Concent 34.7 32.0-36.0 g/dL Red Cell Distribution Width 13.0 11.8-14.3 % Platelet Count 137 L 140-450 10^3/uL Mean Platelet Volume 7.9 6.9-10.8 fL Neutrophils (%) (Auto) 92.4 H 37.0-80.0 % Lymphocytes (%) (Auto) 4.9 L 10.0-50.0 % Monocytes (%) (Auto) 2.6 0.0-12.0 % Eosinophils (%) (Auto) 0.0 0.0-7.0 % Basophils (%) (Auto) 0.1 0.0-2.0 % Neutrophils # (Auto) 7.7 1.6-8.6 10 ^3/uL Lymphocytes # (Auto) 0.4 0.4-5.4 10 ^3/uL Monocytes # (Auto) 0.2 0-1.3 10 ^3/uL Eosinophils # (Auto) 0 0-0.8 10 ^3/uL Basophils # (Auto) 0 0-0.2 10 ^3/uL Nucleated Red Blood Cells 0.0 % Prothrombin Time 12.3 H 9.3-11.8 sec Prothrombin Time INR 1.18 H 0.9-1.15 Activated Partial Thromboplast Time 29.6 24.5-34.5 SEC D-Dimer, Quantitative 2.15 H 0.0-0.49 mg/L FEU Sodium Level 133 L 136-145 mmol/L Potassium Level 3.7 3.5-5.1 mmol/L Chloride Level 101 98-107 mmol/L Carbon Dioxide Level 17 L 20-31 mmol/L Anion Gap 15 5-15 Blood Urea Nitrogen 23 9-23 mg/dL Creatinine 0.96 0.700-1.30 mg/dL Glomerular Filtration Rate Calc 76 >90 mL/min BUN/Creatinine Ratio 24.0 H 10.0-20.0 Serum Glucose 144 H 74-106 mg/dL Calcium Level 8.7 8.7-10.4 mg/dL Total Bilirubin 1.5 H 0.2-1.0 mg/dL Aspartate Amino Transferase (AST) 24 13-40 U/L Alanine Aminotransferase (ALT) 16 7-40 U/L Alkaline Phosphatase 83 46-116 U/L B-Type Natriuretic Peptide 195.62 0-100 pg/mL Total Protein 6.4 5.7-8.2 g/dL Albumin 4.2 3.2-4.8 g/dL Assessment Sepsis with UTI/pneumonia NSTEMI, likely type 2 secondary to above Rule out structural heart disease Hypertension Dyslipidemia Tobacco use Plan/Recommendation (Dr. Gonsalez) The patient with trending troponin levels is cardiac asymptomatic and with multiple 12 lead electrocardiograms not showing acute evidence of ST-T wave changes. He will undergo a transthoracic echocardiogram to rule out structural heart disease. In the meantime, continue single-antiplatelet therapy and monitor platelet count closely. Trend troponin levels for peak and fall levels. He can benefit from ischemic work-up as outpatient if deemed necessary. Continue abx therapy and cooling measures per primary care team. In the setting of an unremarkable echocardiogram, there is no further cardiac work-up indicated at this time. Thank you for allowing us to participate in this patient's care. Please call if you have any questions or concerns. This medical document was created using an electronic medical record system with voice recognition software and computerized dictation system. Although this document has been carefully reviewed, there might still be some phonetic and typographical errors. Occasional wrong-word or ``sound-alike substitutions may have occurred due to the inherent limitations of voice recognition software. These areas are purely typographical due to imperfections of the software programs and do not reflect any compromise in the patient's medical care. Please read the chart carefully and recognize, using context, where these substitutions have occurred. Plan discussed with: Patient, Other NYHA Physical activity limitations: NA Date of Service: Oct 05, 2024 Billing Provider: DANIEL AUSTIN Cardiology Common Codes: [id number] INP/OBS CARE (High) TAYLOR GONSALEZ MD 10/05/24 1318: Allergies: Coded Allergies: NO KNOWN ALLERGIES (Unverified , 05/16/11) Home Meds Reported Medications Hydrochlorothiazide W/Triamter (Hctz/Triamterene) 1 Cap Cap 05/16/11 Plan/Recommendation pt here for urinary retention no surgical plan for now pt likely has underlying cad, with biphasic t wave changes in v-4-v5 and WMA on echo but no symptoms if feasible plan for asa, plavix statin and outpt fu Plan discussed with: Patient DANIEL AUSTIN Oct 05, 2024 08:38 TAYLOR GONSALEZ MD Oct 05, 2024 13:18
[2024-10-05] MEDS: cefTRIAXone 1GM/50ML D5W 50 ML IV SCH (09:00)
[2024-10-05] MEDS: AZITHROMYCIN 500MG/ 250ML 250 ML IV SCH (10:00)
[2024-10-05] MEDS: LISINOPRIL 20 MG TAB PO SCH (10:00)
--- NOTE | 2024-10-05 10:12 | DVHINCON2 ---
Date of service: Oct 05, 2024 Referring Physician Hospitalist Reason for Consultation urinary retention History of Present Illness History Source: Patient, RN Notes, MD Notes Exam Limitations: No limitations HPI 89 yo male with hx of HTn and HLD. he is a smoker. denies surgical history. He presented with c/o urinary retention x 2 days. He c/o dizziness, dyspnea and ch ills. Denies chest pain, nausea and vomiting. No hematuria. CTA chest is negative for PE. RN placed a proctor 16F proctor catheter. Pt is admitted for NSTEMI. Home Meds Reported Medications Hydrochlorothiazide W/Triamter (Hctz/Triamterene) 1 Cap Cap 05/16/11 H&P Exam Vital Signs Vital Signs Date Time Temp Pulse Resp B/P (MAP) Pulse Ox O2 Delivery O2 Flow Rate FiO2 10/05/24 08:00 62 10/05/24 06:30 94 Room Air 10/05/24 06:30 0 21 10/05/24 06:00 24 137/81 (99) 10/05/24 03:40 98.4 98.4 General Appeara: Well developed, Well nourished, Normal Appearance Neuro/Mental St: Alert, Oriented Appearance: Appropriate appearance, Appropriate insight Eye contact/ Speech: Cooperative, Good eye contact, Normal speech Skin Exam: Normal inspection, Normal color, Warm/dry Labs/Xrays Labs Test 10/05/24 08:38 10/05/24 08:28 10/05/24 01:28 10/04/24 23:38 Range/Units Hemoglobin A1c 5.2 <5.7 % A1C Magnesium Level 1.7 1.6-2.6 mg/dL Troponin I High Sensitivity 1433 *H </=54 ng/L Lactic Acid Level 1.3 0.4-2.0 mmol/L Triglycerides Level 95 < 150 mg/dL Cholesterol Level 102 < 200 mg/dL LDL Cholesterol 53 < 100 mg/dL HDL Cholesterol 33 L 40-59 mg/dL Thyroid Stimulating Hormone (TSH) 1.36 0.55-4.78 uIU/mL Test 10/04/24 22:55 10/04/24 22:43 Range/Units Urine Color Colorless Yellow Urine Clarity Turbid H Clear Urine pH 5.5 5.0-9.0 Urine Specific [place] 1.013 1.001-1.035 Urine Protein 1+ H Negative Urine Ketones Trace Negative Urine Blood 2+ H Negative /uL Urine Nitrite Negative Negative Urine Bilirubin Negative Negative Urine Urobilinogen Normal Negative mg/dL Urine Leukocyte Esterase 2+ Negative /uL Urine RBC 3 0 - 3 /hpf Urine Microscopic WBC 41 H 0-3 /HPF Urine Squamous Epithelial Cells Few <5 /hpf Urine Bacteria Few H None Seen /hpf Urine Glucose Normal Normal mg/dL White Blood Count 8.3 4.4-10.8 10^3/uL Red Blood Count 3.71 L 4.5-5.90 10^6/uL Hemoglobin 12.6 L 13.5-17.5 g/dL Hematocrit 36.4 L 41.0-53.0 % Mean Corpuscular Volume 98.2 80.0-100.0 fL Mean Corpuscular Hemoglobin 34.0 H 28.0-32.0 pg Mean Corpuscular Hemoglobin Concent 34.7 32.0-36.0 g/dL Red Cell Distribution Width 13.0 11.8-14.3 % Platelet Count 137 L 140-450 10^3/uL Mean Platelet Volume 7.9 6.9-10.8 fL Neutrophils (%) (Auto) 92.4 H 37.0-80.0 % Lymphocytes (%) (Auto) 4.9 L 10.0-50.0 % Monocytes (%) (Auto) 2.6 0.0-12.0 % Eosinophils (%) (Auto) 0.0 0.0-7.0 % Basophils (%) (Auto) 0.1 0.0-2.0 % Neutrophils # (Auto) 7.7 1.6-8.6 10 ^3/uL Lymphocytes # (Auto) 0.4 0.4-5.4 10 ^3/uL Monocytes # (Auto) 0.2 0-1.3 10 ^3/uL Eosinophils # (Auto) 0 0-0.8 10 ^3/uL Basophils # (Auto) 0 0-0.2 10 ^3/uL Nucleated Red Blood Cells 0.0 % Prothrombin Time 12.3 H 9.3-11.8 sec Prothrombin Time INR 1.18 H 0.9-1.15 Activated Partial Thromboplast Time 29.6 24.5-34.5 SEC D-Dimer, Quantitative 2.15 H 0.0-0.49 mg/L FEU Sodium Level 133 L 136-145 mmol/L Potassium Level 3.7 3.5-5.1 mmol/L Chloride Level 101 98-107 mmol/L Carbon Dioxide Level 17 L 20-31 mmol/L Anion Gap 15 5-15 Blood Urea Nitrogen 23 9-23 mg/dL Creatinine 0.96 0.700-1.30 mg/dL Glomerular Filtration Rate Calc 76 >90 mL/min BUN/Creatinine Ratio 24.0 H 10.0-20.0 Serum Glucose 144 H 74-106 mg/dL Calcium Level 8.7 8.7-10.4 mg/dL Total Bilirubin 1.5 H 0.2-1.0 mg/dL Aspartate Amino Transferase (AST) 24 13-40 U/L Alanine Aminotransferase (ALT) 16 7-40 U/L Alkaline Phosphatase 83 46-116 U/L B-Type Natriuretic Peptide 195.62 0-100 pg/mL Total Protein 6.4 5.7-8.2 g/dL Albumin 4.2 3.2-4.8 g/dL Assessment/Plan Problem List: (1) Urinary tract infection (2) Hyponatremia (3) Pneumonia (4) Elevated troponin (5) Bladder outlet obstruction (6) Elevated d-dimer Plan keep proctor in place, trial of void in 3-5 days if stable renal bladder US start alpha blockers Monitor urine output and culture results No acute urologic intervention required at this time. Outpatient cystocopy TBA Plan discussed with: Patient, Other JAEL SCHREIBER NP Oct 05, 2024 10:12
[2024-10-05 10:29] VITALS: PULSE 72; RESP 26; O2SAT 92
[2024-10-05] MEDS: MAGNESIUM SULFATE 1GM/100ML 100 ML IV ONE (10:45)
[2024-10-05] MEDS: FINASTERIDE 5 MG TAB PO SCH (11:18)
--- NOTE | 2024-10-05 11:34 | DVH ---
INDICATION: retention TECHNIQUE: Multiple real-time sonographic images of the kidneys and bladder were obtained. COMPARISON: None FINDINGS: The right kidney measures 10 cm in length. The right renal echogenicity, contour and cortic al thickness are within normal limits. No hydronephrosis or large masses/calculi are seen. The left kidney measures 11 cm in length. The left renal echogenicity, contour, and cortical thicknes s are within normal limits. no hydronephrosis or large masses. 6 mm left renal calculus. Cevallos catheter visualized in a decompressed bladder. IMPRESSION: 1. 6 mm left lower pole renal calculus.
--- NOTE | 2024-10-05 11:54 | ECG ---
[facility] Test Date: 2024-10-05 Test Time: 08:33:59 Pat Name: DOYLE SAUL Department: ED Room: 0233T Gender: M Cephalometric Tracer: PIO : [id number] Requested By: DANIEL AUSTIN Order Number: [id number] Reading MD: Yunior Hickman Measurements Intervals [place] Rate: 68 P: 59 WV: 180 QRS: -21 QRSD: 94 T: 67 QT: 396 QTc: 422 Interpretive Statements Sinus rhythm Borderline left axis deviation Abnormal R-wave progression, early transition Baseline wander in lead(s) I Electronically Signed On 10-08-2024 18:57:01 PDT by Yunior Hickman Please click the below link to view image of tracing.
--- NOTE | 2024-10-05 12:55 | DVHSR ---
APPROVED REPORT EXAM: Two-dimensional and M-mode echocardiogram with Doppler and color Doppler. Blood Pressure: 137/81 mmHg INDICATION EF RISK FACTORS Height: 5'10", Weight: 190 DIMENSIONS LVDd4.4 (3.8-5.7cm)LA (2D)3.6 (1.9-4.0cm)Aortic Root3.8 (2.0-3.7cm) LVDs3.3 (2.5-4.0cm)LA (MM) (1.9-4.0cm)Aortic Cusp Exc1.0 (1.5-2.0cm) EF (%) 42.0 (55-70%)Rt. Atrium3.6 (1.9-4.0cm)Asc. Aorta cm IVSd1.2 (0.7-1.1cm)RV (D)4.5 (1.8-2.4cm) PWd1.0 (0.7-1.1cm) Mitral Valve MitralMitral Stenosis E wave0.54m/sMV Mean GR.2mmHg A wave1.38m/sMV Peak GR.9mmHg E/A ratio0.42D MVAcm2 DECEL [id number] 1/2 [place] Aortic Valve Aortic ValveAortic Stenosis V10.69m/Francesco Mean GR.14mmHg V22.70m/Francesco Peak GR.29mmHg LVOT Diameter2.3 (1.8-2.4cm)Doppler AVA1.06cm2 AI P 1/2 Dbeq430.78ms Pulmonic Valve V21.43m/s Tricuspid Valve TR Velocity2.54m/s [id number] Other Information Technically limited study due to body habitus. Conclusion lvef 40-45% apex is hypokinetic normal rv function aortic sclerosis is noted moderate MAC is noted left atrium enlarged
[2024-10-05 17:22] LABS: INR 1.08 (0.9-1.15); Partial Thromboplastin Time 31.0 SEC (24.5-34.5); Prothrombin Time 11.4 sec (9.3-11.8)
[2024-10-05] MEDS: TAMSULOSIN HYDROCHLORIDE 0.4 MG CAP PO SCH (18:38)
[2024-10-05] MEDS: HEPARIN SODIUM (PORCINE) 5000 UNITS/ML 1ML VIAL IV ONE (18:39)
[2024-10-05] MEDS: HEPARIN DRIP/D5W 100UNITS/ML 250 ML IV SCH (18:40)
--- NOTE | 2024-10-05 18:52 | DVHPN2 ---
Subjective Patient feels better. No complaints of chest pain. Shortness of breath is resolving. CXR resolved. He endorses that his bladder never filled full. He recently had a URI and was taking [id number] cold and cough medications. Does not having any history of BPH. And his recent PSA levels have been normal. Reviewed: H&P Changes from previous H/P or p: No Changes General: Per HPI Objective Vitals Vital Signs Date Time Temp Pulse Resp B/P (MAP) Pulse Ox O2 Delivery O2 Flow Rate FiO2 10/05/24 16:00 68 10/05/24 11:12 117/48 10/05/24 10:29 26 92 Room Air* 0 21 10/05/24 10:22 100.0 100.0 Exam GEN: Healthy appearing, well-developed, NAD. HEENT: NC/AT; MMM. CV: Patient has a heart murmur, gallop possible. LUNGS: CTAB, no w/r/c. ABD: Soft, NT/ND, NBS, no masses or organomegaly. Obese abdomen, bowel sounds present. No CVA tenderness. EXT: skin Warm, well perfused. no rashes. No clubbing, cyanosis, or edema. No lower extremity edema, pulses present lower extremity bilateral. NEURO: Ambulating with no limitations. No focal deficits. Medications Current Medications Medications Dose Ordered Sig/Bobby Route Start Time Stop Time Status Last Admin Dose Admin Ceftriaxone Sodium 50 ml @ 100 mls/hr DAILY@09 IV 10/05/24 09:00 10/05/24 09:00 100 MLS/HR Azithromycin 250 ml @ 125 mls/hr DAILY IV 10/05/24 10:00 10/05/24 10:00 125 MLS/HR Nifedipine 30 mg DAILY PO 10/05/24 10:00 10/05/24 11:12 30 MG Lisinopril 40 mg DAILY PO 10/05/24 10:00 10/05/24 10:00 40 MG Albuterol 2.5 mg Q6HPRN PRN NEB 10/05/24 03:30 Aspirin 162 mg DAILY PO 10/05/24 10:00 10/05/24 11:11 162 MG Acetaminophen/ Hydrocodone Bitart 1 tab Q4HP PRN PO 10/05/24 03:30 Ondansetron HCl 4 mg Q4HP PRN IV 10/05/24 03:30 Acetaminophen 650 mg Q6HP PRN PO 10/05/24 03:30 Nitroglycerin 0.4 mg Q5MINP PRN SL 10/05/24 03:30 Morphine Sulfate 2 mg Q30M PRN IV 10/05/24 03:30 Tamsulosin HCl 0.4 mg QPM PO 10/05/24 18:00 10/05/24 18:38 0.4 MG Finasteride 5 mg DAILY PO 10/05/24 10:30 10/05/24 11:18 5 MG Atorvastatin Calcium 40 mg HS PO 10/05/24 22:00 Clopidogrel Bisulfate 75 mg DAILY PO 10/06/24 10:00 Heparin Sodium/ Dextrose 250 ml @ 10 mls/hr Q24H IV 10/05/24 16:15 10/05/24 18:40 10 MLS/HR Laboratory Results Laboratory Tests 10/04/24 22:43 Chemistry Test 10/04/24 22:43 10/05/24 08:38 Albumin 4.2 g/dL (3.2-4.8) Calcium Level 8.7 mg/dL (8.7-10.4) Total Protein 6.4 g/dL (5.7-8.2) Magnesium Level 1.7 mg/dL (1.6-2.6) Coagulation Test 10/04/24 22:43 10/05/24 17:00 Prothrombin Time 12.3 sec (9.3-11.8) H 11.4 sec (9.3-11.8) Prothrombin Time INR 1.18 (0.9-1.15) H 1.08 (0.9-1.15) Activated Partial Thromboplast Time 29.6 SEC (24.5-34.5) 31.0 SEC (24.5-34.5) D-Dimer, Quantitative 2.15 mg/L FEU (0.0-0.49) H Lipid panel Test 10/05/24 01:28 Cholesterol Level 102 mg/dL (< 200) HDL Cholesterol 33 mg/dL (40-59) L Triglycerides Level 95 mg/dL (< 150) Cardiac Markers Test 10/04/24 22:43 B-Type Natriuretic Peptide 195.62 pg/mL (0-100) LFT Test 10/04/24 22:43 Alanine Aminotransferase (ALT) 16 U/L (7-40) Alkaline Phosphatase 83 U/L (46-116) Aspartate Amino Transferase (AST) 24 U/L (13-40) Total Bilirubin 1.5 mg/dL (0.2-1.0) H HgA1c, TSH Test 10/04/24 23:38 10/05/24 08:38 Thyroid Stimulating Hormone (TSH) 1.36 uIU/mL (0.55-4.78) Hemoglobin A1c 5.2 % A1C (<5.7) Urinalysis Test 10/04/24 22:55 Urine Color Colorless (Yellow) Urine Clarity Turbid (Clear) H Urine pH 5.5 (5.0-9.0) Urine Specific [place] 1.013 (1.001-1.035) Urine Protein 1+ (Negative) H Urine Ketones Trace (Negative) Urine Blood 2+ /uL (Negative) H Urine Nitrite Negative (Negative) Urine Bilirubin Negative (Negative) Urine Urobilinogen Normal mg/dL (Negative) Urine Leukocyte Esterase 2+ /uL (Negative) Urine RBC 3 /hpf (0 - 3) Urine Microscopic WBC 41 /HPF (0-3) H Urine Squamous Epithelial Cells Few /hpf (<5) Urine Bacteria Few /hpf (None Seen) H Urine Glucose Normal mg/dL (Normal) Labs and/or images reviewed: Labs reviewed by me, Image(s) reviewed by me Assessment/Plan Assessment/Plan 10/05 89-year-old male with past medical history hypertension and dyslipidemia. initially presented with complaints of urinary retention. He states having urinary retention for the past two days. He also reports developing dizziness, chills and shortness for breath. . Patient feels better. No complaints of chest pain. Shortness of breath is resolving. CXR resolved. He endorses that his bladder never filled full. He recently had a URI and was taking [id number] cold and cough medications. Does not having any history of BPH. And his recent PSA levels have been normal. On labs he has neutrophilia, Troponinemia which is keeps worsening elevating to very high levels. Cardiology consulted and is considering left heart catheterization. ACS started. Cevallos was inserted, Urology was consulted. Urine is concerning for UTI patient is on antibiotics. Urology is unconcerning for acute urinary retention and wants to keep Cevallos inserted and have outpatient follow up. Flomax was started. Echocardiogram was done showing EF 40-45%, apex hypokinetic, normal RV, aortic sclerosis, left atria enlarged,. Acute coronary syndrome Troponinemia, rule out type 1 Sepsis due to below Acute complicated cystitis Acute gastroenteritis, infectious etiology likely Neutrophilia Anemia, normocytic Thrombocytopenia Febrile Tachycardia Tachypnea -Aspirin 162, with heparin for ACS -Lipitor 40 -Ceftriaxone and azithromycin, and Flagyl -Plavix 75 -Finasteride 5 mg, with Flomax 0.4 -Lisinopril 40, Procardia 30, -Prn pain control -P.r.n. antiemetics Cardiac diet, NPO midnight GI prophylaxis tolerating p.o., DVT prophylaxis-on ACS Tele Full code Plan discussed with: Patient Date of Service: Oct 05, 2024 Billing Provider: JESSIAC FRANKS MD Common Visit Codes: [id number] INP/OBS CARE(HIGH) JESSICA FRANKS MD Oct 05, 2024 18:52
[2024-10-05 19:38] VITALS: O2SAT 96
[2024-10-05 19:45] VITALS: PULSE 92; RESP 22; O2SAT 95
[2024-10-05] MEDS ORDERED: ATORVASTATIN 20 MG TAB PO SCH (22:00)
[2024-10-05] MEDS: ATORVASTATIN 20 MG TAB PO SCH (22:15)
[2024-10-05 23:55] VITALS: BP 119/55; PULSE 45; RESP 18; TEMP 97.9; O2SAT 96
[2024-10-06] VITALS (10 sets, daily range): BP systolic 90–126; BP diastolic 40–76; PULSE 45–90; RESP 12–19; TEMP 97–98.7; O2SAT 92–97
[2024-10-06 06:09] LABS: Alanine Aminotransferase 37 U/L (7-40); Albumin 3.8 g/dL (3.2-4.8); Alkaline Phosphatase 76 U/L (46-116); Anion Gap 10 (5-15); BUN/Creatinine Ratio 26.0 (10.0-20.0); Calcium 8.9 mg/dL (8.7-10.4); Carbon Dioxide 24 mmol/L (20-31); Chloride 102 mmol/L (98-107); Sodium 136 mmol/L (136-145)
[2024-10-06 06:10] LABS: Blood Urea Nitrogen 26 mg/dL (9-23); Glucose 115 mg/dL (74-106); Potassium 3.4 mmol/L (3.5-5.1); Total Protein 5.6 g/dL (5.7-8.2)
[2024-10-06 06:17] LABS: INR 1.07 (0.9-1.15); Partial Thromboplastin Time 43.0 SEC (24.5-34.5); Prothrombin Time 11.3 sec (9.3-11.8)
[2024-10-06 06:22] LABS: Hematocrit 36.2 % (41.0-53.0); Hemoglobin 12.8 g/dL (13.5-17.5); Mean Corpuscular Hemoglobin 34.5 pg (28.0-32.0); Mean Corpuscular Volume 97.6 fL (80.0-100.0)
[2024-10-06 06:33] LABS: Bilirubin, Total 0.6 mg/dL (0.2-1.0)
[2024-10-06] MEDS: HEPARIN DRIP/D5W 100UNITS/ML 250 ML IV SCH ×2 (06:45→20:38)
[2024-10-06 07:06] LABS: Total Cells Counted 100.0 (100)
[2024-10-06] MEDS ORDERED: ENOXAPARIN SOD 40 MG/0.4 ML SYRINGE SC SCH (10:00)
[2024-10-06] MEDS: CLOPIDOGREL BISULFATE 75 MG TAB PO SCH (10:56)
--- NOTE | 2024-10-06 11:51 | DVHPN2 ---
Consult Progress Note Date Seen: Oct 06, 2024 Subjective Review of Systems: CVS:Normal, RESPIRATORY:Normal, NEURO:Normal Objective vital signs Vital Sign Date Time Temp Pulse Resp B/P (MAP) Pulse Ox O2 Delivery O2 Flow Rate FiO2 10/06/24 10:57 121/62 10/06/24 09:00 97.6 82 12 92 97.6 10/05/24 23:55 Nasal Cannula* 2 28 Total Intake and Output 10/05/24 10/05/24 10/06/24 15:00 23:00 07:00 Intake Total 50 ml 120 ml Output Total 1200 ml 300 ml Balance -1150 ml -180 ml medications Current Medications Medications Dose Ordered Sig/Bobby Route Start Time Stop Time Status Last Admin Dose Admin Ceftriaxone Sodium 50 ml @ 100 mls/hr DAILY@09 IV 10/05/24 09:00 10/06/24 11:04 100 MLS/HR Azithromycin 250 ml @ 125 mls/hr DAILY IV 10/05/24 10:00 10/05/24 10:00 125 MLS/HR Nifedipine 30 mg DAILY PO 10/05/24 10:00 10/06/24 10:57 30 MG Lisinopril 40 mg DAILY PO 10/05/24 10:00 10/06/24 10:57 40 MG Albuterol 2.5 mg Q6HPRN PRN NEB 10/05/24 03:30 Aspirin 162 mg DAILY PO 10/05/24 10:00 10/06/24 10:55 162 MG Acetaminophen/ Hydrocodone Bitart 1 tab Q4HP PRN PO 10/05/24 03:30 Ondansetron HCl 4 mg Q4HP PRN IV 10/05/24 03:30 Acetaminophen 650 mg Q6HP PRN PO 10/05/24 03:30 Nitroglycerin 0.4 mg Q5MINP PRN SL 10/05/24 03:30 Morphine Sulfate 2 mg Q30M PRN IV 10/05/24 03:30 Tamsulosin HCl 0.4 mg QPM PO 10/05/24 18:00 10/05/24 18:38 0.4 MG Finasteride 5 mg DAILY PO 10/05/24 10:30 10/06/24 10:56 5 MG Atorvastatin Calcium 40 mg HS PO 10/05/24 22:00 10/05/24 22:15 40 MG Clopidogrel Bisulfate 75 mg DAILY PO 10/06/24 10:00 10/06/24 10:56 75 MG Heparin Sodium/ Dextrose 250 ml @ 12 mls/hr [id number] IV 10/06/24 06:45 10/06/24 06:45 12 MLS/HR Examination: LUNGS:Normal, CVS:Normal, NEURO:Normal laboratory and microbiology Laboratory Tests 10/06/24 04:59 Test 10/06/24 04:59 Range/Units Serum Glucose 115 H 74-106 mg/dL Problem List/Assessment/Plan Problem List/Assessment/Plan Non ST-Elevation myocardial infarction Chronic compensated HFmrEF at 40-45% Rule out coronary artery disease Sepsis with UTI/pneumonia Hypertension Dyslipidemia Tobacco use Plan/Recommendation (Dr. Hickman) Transthoracic echocardiogram revealed LVEF of 40-45% with hypokinetic apex, aortic sclerosis, moderate MAC, and normal RV function. Troponin levels peaked in the 1700s ng/L with associated progressive ischemic changes on twelve-lead electrocardiograms. He is scheduled for a cardiac catheterization and coronary angiogram on 10/07/[address] Hickman. Risks and benefits of the procedure were discussed with the patient in full detail and agrees to proceed with intervention. Risks include bleeding, GARFIELD, CVA, coronary dissection and event . In the meantime, continue heparin drip, dual-antiplatelet therapy and lipid lowering agent. Initiate GDMT for HFmrEF and uptitrate as tolerated. Replete electrolytes as necessary. Continue abx therapy per primary care team. Further recommendations per clinical course. Thank you for allowing us to participate in this patient's care. Please call if you have any questions or concerns. This medical document was created using an electronic medical record system with voice recognition software and computerized dictation system. Although this document has been carefully reviewed, there might still be some phonetic and typographical errors. Occasional wrong-word or ``sound-alike substitutions may have occurred due to the inherent limitations of voice recognition software. These areas are purely typographical due to imperfections of the software programs and do not reflect any compromise in the patient's medical care. Please read the chart carefully and recognize, using context, where these substitutions have occurred. Plan discussed with: Patient, Other Date of Service: Oct 06, 2024 Billing Provider: DANIEL AUSTIN [facility] Cardiology Common Codes: [id number] HOSP CARE(DANIEL Veliz [facility] Oct 06, 2024 11:51
[2024-10-06] MEDS: POTASSIUM EFFERVESENT TAB 25 MEQ PO ONE (12:27)
[2024-10-06 14:05] LABS: INR 1.06 (0.9-1.15); Partial Thromboplastin Time 51.8 SEC (24.5-34.5); Prothrombin Time 11.2 sec (9.3-11.8)
--- NOTE | 2024-10-06 14:52 | DVHPN2 ---
Subjective Patient feels better. No complaints of chest pain. Shortness of breath is resolving. CXR resolved. He endorses that his bladder never filled full. He recently had a URI and was taking [id number] cold and cough medications. Does not having any history of BPH. And his recent PSA levels have been normal. Reviewed: H&P Changes from previous H/P or p: No Changes General: Per HPI Objective Vitals Vital Signs Date Time Temp Pulse Resp B/P (MAP) Pulse Ox O2 Delivery O2 Flow Rate FiO2 10/06/24 12:28 97.8 90 18 120/55 (76) 93 97.8 10/06/24 10:00 Room Air* 0 21 Intake/Output Intake and Output 10/06/24 07:00 Intake Total 170 ml Output Total 1500 ml Balance -1330 ml Intake Oral 50 ml IV Total 120 ml Output Urine Total 1500 ml Exam GEN: Healthy appearing, well-developed, NAD. HEENT: NC/AT; MMM. CV: Patient has a heart murmur, gallop possible. LUNGS: CTAB, no w/r/c. ABD: Soft, NT/ND, NBS, no masses or organomegaly. Obese abdomen, bowel sounds present. No CVA tenderness. EXT: skin Warm, well perfused. no rashes. No clubbing, cyanosis, or edema. No lower extremity edema, pulses present lower extremity bilateral. NEURO: Ambulating with no limitations. No focal deficits. Medications Current Medications Medications Dose Ordered Sig/Bobby Route Start Time Stop Time Status Last Admin Dose Admin Ceftriaxone Sodium 50 ml @ 100 mls/hr DAILY@09 IV 10/05/24 09:00 10/06/24 11:04 100 MLS/HR Azithromycin 250 ml @ 125 mls/hr DAILY IV 10/05/24 10:00 10/06/24 12:26 125 MLS/HR Lisinopril 40 mg DAILY PO 10/05/24 10:00 10/06/24 10:57 40 MG Albuterol 2.5 mg Q6HPRN PRN NEB 10/05/24 03:30 Aspirin 162 mg DAILY PO 10/05/24 10:00 10/06/24 10:55 162 MG Acetaminophen/ Hydrocodone Bitart 1 tab Q4HP PRN PO 10/05/24 03:30 Ondansetron HCl 4 mg Q4HP PRN IV 10/05/24 03:30 Acetaminophen 650 mg Q6HP PRN PO 10/05/24 03:30 Nitroglycerin 0.4 mg Q5MINP PRN SL 10/05/24 03:30 Morphine Sulfate 2 mg Q30M PRN IV 10/05/24 03:30 Tamsulosin HCl 0.4 mg QPM PO 10/05/24 18:00 10/05/24 18:38 0.4 MG Finasteride 5 mg DAILY PO 10/05/24 10:30 10/06/24 10:56 5 MG Atorvastatin Calcium 40 mg HS PO 10/05/24 22:00 10/05/24 22:15 40 MG Clopidogrel Bisulfate 75 mg DAILY PO 10/06/24 10:00 10/06/24 10:56 75 MG Heparin Sodium/ Dextrose 250 ml @ 12 mls/hr [id number] IV 10/06/24 06:45 10/06/24 06:45 12 MLS/HR Metoprolol Tartrate 12.5 mg BID PO 10/06/24 22:00 Empaglifozin 10 mg DAILY PO 10/07/24 10:00 Laboratory Results Laboratory Tests 10/06/24 04:59 Chemistry Test 10/06/24 04:59 Albumin 3.8 g/dL (3.2-4.8) Calcium Level 8.9 mg/dL (8.7-10.4) Total Protein 5.6 g/dL (5.7-8.2) L Coagulation Test 10/05/24 17:00 10/06/24 00:32 10/06/24 04:59 10/06/24 13:14 Prothrombin Time 11.4 sec (9.3-11.8) 11.3 sec (9.3-11.8) 11.2 sec (9.3-11.8) Prothrombin Time INR 1.08 (0.9-1.15) 1.07 (0.9-1.15) 1.06 (0.9-1.15) Activated Partial Thromboplast Time 31.0 SEC (24.5-34.5) 51.0 SEC (24.5-34.5) H 43.0 SEC (24.5-34.5) H 51.8 SEC (24.5-34.5) H LFT Test 10/06/24 04:59 Alanine Aminotransferase (ALT) 37 U/L (7-40) Alkaline Phosphatase 76 U/L (46-116) Aspartate Amino Transferase (AST) 55 U/L (13-40) H Total Bilirubin 0.6 mg/dL (0.2-1.0) Urinalysis Test 10/04/24 22:55 Urine Color Colorless (Yellow) Urine Clarity Turbid (Clear) H Urine pH 5.5 (5.0-9.0) Urine Specific [place] 1.013 (1.001-1.035) Urine Protein 1+ (Negative) H Urine Ketones Trace (Negative) Urine Blood 2+ /uL (Negative) H Urine Nitrite Negative (Negative) Urine Bilirubin Negative (Negative) Urine Urobilinogen Normal mg/dL (Negative) Urine Leukocyte Esterase 2+ /uL (Negative) Urine RBC 3 /hpf (0 - 3) Urine Microscopic WBC 41 /HPF (0-3) H Urine Squamous Epithelial Cells Few /hpf (<5) Urine Bacteria Few /hpf (None Seen) H Urine Glucose Normal mg/dL (Normal) Microbiology Microbiology Date/Time Source Procedure Growth Status 10/04/24 22:55 Voided Urine Urine Culture - Preliminary Resulted Labs and/or images reviewed: Labs reviewed by me, Image(s) reviewed by me Assessment/Plan Assessment/Plan 10/05 - 89-year-old male with past medical history hypertension and dyslipidemia. initially presented with complaints of urinary retention. He states having urinary retention for the past two days. He also reports developing dizziness, chills and shortness for breath. . Patient feels better. No complaints of chest pain. Shortness of breath is resolving. CXR resolved. He endorses that his bladder never filled full. He recently had a URI and was taking [id number] cold and cough medications. Does not having any history of BPH. And his recent PSA levels have been normal. On labs he has neutrophilia, Troponinemia which is keeps worsening elevating to very high levels. Cardiology consulted and is considering left heart catheterization. ACS started. Cevallos was inserted, Urology was consulted. Urine is concerning for UTI patient is on antibiotics. Urology is unconcerning for acute urinary retention and wants to keep Cevallos inserted and have outpatient follow up. Flomax was started. Echocardiogram was done showing EF 40-45%, apex hypokinetic, normal RV, aortic sclerosis, left atria enlarged,. 10/06 - high troponins have plateaued out. Patient cough has improved. No CVA tenderness, . Sirs is resolving, sepsis is resolving. Continuing antibiotics as below. Cardiology remains concern for type 1 and ACS is continuing. Plan for possible left heart catheterization tomorrow. Patient wants to change code status to DNR DNI. We will continue present management and we will continue to follow up. Acute coronary syndrome Troponinemia, rule out type 1 Sepsis due to below Acute complicated cystitis with outflow obstruction pneumonia possible, gram neg/gram pos likely Recent URI Acute gastroenteritis, infectious etiology likely Neutrophilia Anemia, normocytic Thrombocytopenia Febrile Tachycardia Tachypnea -Aspirin 162, with heparin for ACS -Lipitor 40 -Ceftriaxone and azithromycin, and Flagyl -Plavix 75 -Finasteride 5 mg, with Flomax 0.4 -Lisinopril 40, Procardia 30, -Prn pain control -P.r.n. antiemetics Cardiac diet, NPO midnight GI prophylaxis tolerating p.o., DVT prophylaxis-on ACS Tele Full code Plan discussed with: Patient My Orders Orders - JESSICA FRANKS MD Procedure Category Date Status Time Code Status CODE 10/06/24 Transmitted 14:12 Date of Service: Oct 06, 2024 Billing Provider: JESSICA FRANKS MD Common Visit Codes: [id number] INP/OBS CARE(HIGH) JESSICA FRANKS MD Oct 06, 2024 14:52
[2024-10-06 19:40] LABS: INR 1.03 (0.9-1.15); Partial Thromboplastin Time 35.3 SEC (24.5-34.5); Prothrombin Time 10.9 sec (9.3-11.8)
[2024-10-06] MEDS: METOPROLOL TARTRATE 25 MG TAB PO SCH (20:44)
--- NOTE | 2024-10-06 21:01 | CONS ---
Pharmacy Clinical Information: NEW HEPARIN RATE AT 14 ML/HR OR 1400 UNITS/HR SINCE APTT = 35.3 @1900 10/06 PER RX PROTOCOL NEXT APTT VIVIANA @0230 10/07 ERIC REPEATED ORDER INCREASED FROM 12 ML/HR TO 14ML/HR GUSTAVO GILL PHARMACIST Oct 06, 2024 21:01
[2024-10-07] VITALS (12 sets, daily range): BP systolic 103–159; BP diastolic 38–69; PULSE 42–77; RESP 12–22; TEMP 96.1–97.9; O2SAT 92–98
[2024-10-07 03:03] LABS: INR 1.05 (0.9-1.15); Partial Thromboplastin Time 66.7 SEC (24.5-34.5); Prothrombin Time 11.1 sec (9.3-11.8)
[2024-10-07 05:32] LABS: Chloride 102 mmol/L (98-107); Sodium 137 mmol/L (136-145)
[2024-10-07 05:33] LABS: Anion Gap 10 (5-15); Carbon Dioxide 25 mmol/L (20-31)
[2024-10-07 05:34] LABS: Calcium 8.7 mg/dL (8.7-10.4)
[2024-10-07 05:38] LABS: Hemoglobin 12.4 g/dL (13.5-17.5); Nucleated Red Blood Cells % 0.1 %
[2024-10-07 05:39] LABS: BUN/Creatinine Ratio 23.8 (10.0-20.0); Glucose 106 mg/dL (74-106)
[2024-10-07 05:40] LABS: Hematocrit 35.7 % (41.0-53.0); Mean Corpuscular Hemoglobin 34.1 pg (28.0-32.0); Mean Corpuscular Volume 98.3 fL (80.0-100.0)
[2024-10-07 05:43] LABS: Blood Urea Nitrogen 31 mg/dL (9-23); Potassium 3.5 mmol/L (3.5-5.1)
[2024-10-07 06:13] LABS: INR 1.06 (0.9-1.15); Prothrombin Time 11.2 sec (9.3-11.8)
[2024-10-07 06:15] LABS: Partial Thromboplastin Time 77.9 SEC (24.5-34.5)
[2024-10-07] MEDS: HEPARIN SODIUM (PORCINE) 5000 UNITS/ML 1ML VIAL ONE (08:29)
[2024-10-07] MEDS: fentaNYL CITRATE 100 MCG/2 ML VL ONE (08:29)
[2024-10-07] MEDS: ANGIOMAX 250 MG VIAL IV ONE (08:29)
[2024-10-07] MEDS: VERAPAMIL 2.5MG/ML INJ 2ML VIAL IV ONE (08:29)
[2024-10-07] MEDS: MIDAZOLAM HCL 2MG/2ML 2ml VIAL (1mg/ml) ONE (08:30)
[2024-10-07] MEDS: LIDOCAINE 2%HCL (LOCAL ANESTH.) INJ 20ML MDV ONE (08:30)
[2024-10-07] MEDS: SODIUM CHL 0.9% 50 ML ONE (08:30)
[2024-10-07] MEDS: IODIXANOL 320MG/ML 100ML BTL IV ONE ×3 (09:00→10:27)
[2024-10-07] MEDS: CLOPIDOGREL BISULFATE 75 MG TAB ONE (10:27)
--- NOTE | 2024-10-07 11:01 | DVHOP2 ---
Operative Report - 2 Report Details Date: 10/07/24 Preop Diagnosis: CAD Postop Diagnosis: Lad stenosis Surgeon: Kin Hickman MD Anesthesiologist: Conscious sedation Anesthesia: Mac, Local Consent: The patient was informed of the risks and benefits of the procedure. These include but are not limited to complications of anesthesia, postoperative infection, incomplete relief of symptoms, recurrence of symptoms, damage to blood vessels, nerves and tendons, deep venous thrombosis, pulmonary embolism and possible need for repeat surgery in the future. Complications: No complications Findings: Lad stenosis Indications for Surgery: Abnormal troponins type 2 myocardial infarction Name of Procedure Performed Left heart catheterization. Bilateral cine coronary angiography. Left ventriculography. PTCA and stenting of left anterior descending coronary artery. Procedure Details Procedure Details: Prior local anesthesia with 2% lidocaine to the right wrist and full informed consent obtained the patient was prepped and draped in usual fashion followed by placement of a six [place] sheath into the radial artery and a multipurpose catheter was then used to perform ventriculography and cannulation of both right and left coronary ostia without complications. Patient tolerated the procedure well. Hemodynamics: Aortic blood pressure was 110/70. End-diastolic pressure was five. There was no gradient across the aortic valve on pullback. Coronary anatomy: The RCA is a large dominant vessel. PDA and posterolateral branches are normal as is the RCA. Left main is large and normal. Left anterior descending is a large vessel in its proximal portion. The mid section has a 99% stenosis. The distal LAD is large and free of significant disease. Diagonals and septals are normal. The circumflex is a large vessel with two marginal branches free of significant disease. Ventriculography in the BLOUNT projection shows an EF of about 50%. No wall motion abnormalities discernible. After angiographic evaluation we placed a 4.0 EBU guide into the aorta and cannulated the left main. A Specter wire was used to cross the area of stenosis in the left anterior descending coronary artery followed by pre dilatation of the stenotic lesion with a 2.5 mm balloon by [employer]. We then placed a 3-0 by 15 mm stent into the left anterior descending coronary artery at a proximally 12 atmospheres with excellent antegrade flow without thrombus formation and/or dissection. Residual stenosis was 0%. JOHN three flow was noted. Impression: Normal left ventricular end-diastolic pressure at rest with normal ejection fraction. Single-vessel CAD of the LAD. Successful PTCA and stenting of the left anterior descending coronary artery with a Medtronic danish drug- eluting stent. Recommendations: Dual antiplatelet therapy to continue. Risk factor modification. Condition Good Disposition Still a Patient Date of Service: Oct 07, 2024 Billing Provider: KIN HICKMAN Sr., MD Cardiology Common Codes: 31423-[id number] INP/OBS CARE (High) Cardiology Procedure Codes: 88487 -PTCA W/STENT PLACEMENT, 39951-VCQX HEART CATH W/INTRA INJ KIN HICKMAN Sr., MD Oct 07, 2024 11:01
[2024-10-07] MEDS: EMPAGLIFLOZIN 10 MG TAB PO SCH (12:37)
--- NOTE | 2024-10-07 14:14 | DVHPN2 ---
Consult Progress Note Date Seen: Oct 07, 2024 Subjective Review of Systems: CVS:Normal, RESPIRATORY:Normal, NEURO:Normal Objective vital signs Vital Sign Date Time Temp Pulse Resp B/P (MAP) Pulse Ox O2 Delivery O2 Flow Rate FiO2 10/07/24 12:38 120/64 10/07/24 12:37 64 10/07/24 12:16 98 Nasal Cannula 1.0 10/07/24 12:16 24 10/07/24 11:27 96.9 16 96.9 Total Intake and Output 10/06/24 10/06/24 10/07/24 15:00 23:00 07:00 Intake Total 550 ml 952 ml Output Total 300 ml 350 ml Balance 250 ml 602 ml medications Current Medications Medications Dose Ordered Sig/Bobby Route Start Time Stop Time Status Last Admin Dose Admin Ceftriaxone Sodium 50 ml @ 100 mls/hr DAILY@09 IV 10/05/24 09:00 10/06/24 11:04 100 MLS/HR Azithromycin 250 ml @ 125 mls/hr DAILY IV 10/05/24 10:00 10/06/24 12:26 125 MLS/HR Lisinopril 40 mg DAILY PO 10/05/24 10:00 10/07/24 12:38 40 MG Albuterol 2.5 mg Q6HPRN PRN NEB 10/05/24 03:30 Acetaminophen/ Hydrocodone Bitart 1 tab Q4HP PRN PO 10/05/24 03:30 Ondansetron HCl 4 mg Q4HP PRN IV 10/05/24 03:30 Acetaminophen 650 mg Q6HP PRN PO 10/05/24 03:30 Nitroglycerin 0.4 mg Q5MINP PRN SL 10/05/24 03:30 Morphine Sulfate 2 mg Q30M PRN IV 10/05/24 03:30 Tamsulosin HCl 0.4 mg QPM PO 10/05/24 18:00 10/06/24 18:51 0.4 MG Finasteride 5 mg DAILY PO 10/05/24 10:30 10/07/24 12:37 5 MG Atorvastatin Calcium 40 mg HS PO 10/05/24 22:00 10/06/24 20:44 40 MG Clopidogrel Bisulfate 75 mg DAILY PO 10/06/24 10:00 10/07/24 10:26 75 MG Metoprolol Tartrate 12.5 mg BID PO 10/06/24 22:00 10/07/24 12:37 12.5 MG Empaglifozin 10 mg DAILY PO 10/07/24 10:00 10/07/24 12:37 10 MG Aspirin 81 mg DAILY PO 10/08/24 10:00 Examination: LUNGS:Normal, CVS:Normal, NEURO:Normal laboratory and microbiology Laboratory Tests 10/07/24 05:00 Test 10/07/24 05:00 Range/Units Serum Glucose 106 74-106 mg/dL Problem List/Assessment/Plan Problem List/Assessment/Plan Non ST-Elevation myocardial infarction Coronary artery disease status post PTCA and stenting of the LAD x 1 MINISTERIO Chronic compensated/ischemic HFmrEF at 40-45% Sepsis with UTI/pneumonia Hypertension Dyslipidemia Tobacco use Plan/Recommendation (Dr. Hickman) The patient with trending troponin levels and progressive ischemic changes on twelve-lead electrocardiograms underwent a successful PCI of the mid-LAD x 1 MINISTERIO. Transthoracic echocardiogram revealed LVEF of 40-45% with hypokinetic apex, aortic sclerosis, moderate MAC, and normal RV function. Continue GDMT for HFmrEF and uptitrate as tolerated. Continue DAPT (uninterrupted for one year), lipid-lowering agent, and beta-lonny. Follow-up with a primary railcar switchman within 3-4 weeks post discharge from hospital. Unable to schedule in clinic as patient needs a referral. We will sign off at this time. Kindly call with any questions or concerns. Thank you for allowing us to participate in this patient's care. This medical document was created using an electronic medical record system with voice recognition software and computerized dictation system. Although this document has been carefully reviewed, there might still be some phonetic and typographical errors. Occasional wrong-word or ``sound-alike substitutions may have occurred due to the inherent limitations of voice recognition software. These areas are purely typographical due to imperfections of the software programs and do not reflect any compromise in the patient's medical care. Please read the chart carefully and recognize, using context, where these substitutions have occurred. Plan discussed with: Patient, Other Date of Service: Oct 07, 2024 Billing Provider: DANIEL AUSTIN Cardiology Common Codes: 73184-[id number] HOSP CARE(High DANIEL AUSTIN Oct 07, 2024 14:14
[2024-10-07] MEDS ORDERED: ASPI1TAB19 PO (16:37)
[2024-10-07] MEDS ORDERED: TAMS0.4C39 PO (16:37)
[2024-10-07] MEDS ORDERED: VALS40TA2 PO (16:37)
[2024-10-07] MEDS ORDERED: EMPA1TAB PO (16:37)
[2024-10-07] MEDS ORDERED: CLOP75TA28 PO (16:37)
[2024-10-07] MEDS ORDERED: METO25TA93 PO (16:37)
[2024-10-07] MEDS ORDERED: FINA5TAB4 PO (16:37)
[2024-10-07] MEDS ORDERED: ATOR-507 PO (16:37)
[2024-10-07] MEDS ORDERED: CEPH500C PO (16:37)
--- NOTE | 2024-10-07 16:47 | DVHDS2 ---
Discharge Summary Date of Admission Oct 05, 2024 at 03:16 Date of Discharge: Oct 07, 2024 Labs/Diagnostic Data: Laboratory Results Test 10/07/24 05:00 10/06/24 04:59 10/05/24 08:38 10/05/24 01:28 White Blood Count 4.0 10^3/uL (4.4-10.8) Red Blood Count 3.64 10^6/uL (4.5-5.90) Hemoglobin 12.4 g/dL (13.5-17.5) Hematocrit 35.7 % (41.0-53.0) Mean Corpuscular Volume 98.3 fL (80.0-100.0) Mean Corpuscular Hemoglobin 34.1 pg (28.0-32.0) Mean Corpuscular Hemoglobin Concent 34.7 g/dL (32.0-36.0) Red Cell Distribution Width 13.2 % (11.8-14.3) Platelet Count 169 10^3/uL (140-450) Mean Platelet Volume 8.2 fL (6.9-10.8) Neutrophils (%) (Auto) 47.4 % (37.0-80.0) Lymphocytes (%) (Auto) 30.7 % (10.0-50.0) Monocytes (%) (Auto) 16.6 % (0.0-12.0) Eosinophils (%) (Auto) 4.9 % (0.0-7.0) Basophils (%) (Auto) 0.4 % (0.0-2.0) Neutrophils # (Auto) 1.9 10 ^3/uL (1.6-8.6) Lymphocytes # (Auto) 1.2 10 ^3/uL (0.4-5.4) Monocytes # (Auto) 0.7 10 ^3/uL (0-1.3) Eosinophils # (Auto) 0.2 10 ^3/uL (0-0.8) Basophils # (Auto) 0 10 ^3/uL (0-0.2) Nucleated Red Blood Cells 0.1 % Prothrombin Time 11.2 sec (9.3-11.8) Prothrombin Time INR 1.06 (0.9-1.15) Activated Partial Thromboplast Time 77.9 SEC (24.5-34.5) Sodium Level 137 mmol/L (136-145) Potassium Level 3.5 mmol/L (3.5-5.1) Chloride Level 102 mmol/L (98-107) Carbon Dioxide Level 25 mmol/L (20-31) Anion Gap 10 (5-15) Blood Urea Nitrogen 31 mg/dL (9-23) Creatinine 1.30 mg/dL (0.700-1.30) Glomerular Filtration Rate Calc 53 mL/min (>90) BUN/Creatinine Ratio 23.8 (10.0-20.0) Serum Glucose 106 mg/dL (74-106) Calcium Level 8.7 mg/dL (8.7-10.4) Differential Total Cells Counted 100.0 (100) Neutrophils % (Manual) 67 (37.0-80.0) Band Neutrophils % (Manual) 0 Lymphocytes % (Manual) 20 (10.0-50.0) Monocytes % (Manual) 11 (0-12) Eosinophils % (Manual) 2 (0-7) Basophils % (Manual) 0 (0.0-2.0) Metamyelocytes % (manual) 0 Myelocytes % (Manual) 0 Promyelocytes % (Manual) 0 Blast Cells % (Manual) 0 Reactive Lymphocytes 0 Platelet Estimate Adequate Total Bilirubin 0.6 mg/dL (0.2-1.0) Aspartate Amino Transferase (AST) 55 U/L (13-40) Alanine Aminotransferase (ALT) 37 U/L (7-40) Alkaline Phosphatase 76 U/L (46-116) Troponin I High Sensitivity 1010 ng/L (</=54) Total Protein 5.6 g/dL (5.7-8.2) Albumin 3.8 g/dL (3.2-4.8) Hemoglobin A1c 5.2 % A1C (<5.7) Magnesium Level 1.7 mg/dL (1.6-2.6) Lactic Acid Level 1.3 mmol/L (0.4-2.0) Triglycerides Level 95 mg/dL (< 150) Cholesterol Level 102 mg/dL (< 200) LDL Cholesterol 53 mg/dL (< 100) HDL Cholesterol 33 mg/dL (40-59) Test 10/04/24 23:38 10/04/24 22:55 10/04/24 22:43 Thyroid Stimulating Hormone (TSH) 1.36 uIU/mL (0.55-4.78) Urine Color Colorless (Yellow) Urine Clarity Turbid (Clear) Urine pH 5.5 (5.0-9.0) Urine Specific [place] 1.013 (1.001-1.035) Urine Protein 1+ (Negative) Urine Ketones Trace (Negative) Urine Blood 2+ /uL (Negative) Urine Nitrite Negative (Negative) Urine Bilirubin Negative (Negative) Urine Urobilinogen Normal mg/dL (Negative) Urine Leukocyte Esterase 2+ /uL (Negative) Urine RBC 3 /hpf (0 - 3) Urine Microscopic WBC 41 /HPF (0-3) Urine Squamous Epithelial Cells Few /hpf (<5) Urine Bacteria Few /hpf (None Seen) Urine Glucose Normal mg/dL (Normal) D-Dimer, Quantitative 2.15 mg/L FEU (0.0-0.49) B-Type Natriuretic Peptide 195.62 pg/mL (0-100) Other Laboratory Tests 10/07/24 05:00 Brief Hx & Hospital Course: History of Present Illness 89-year-old male pmhx Hypertension and dyslipidemia. initially presented with complaints of urinary retention. He states having urinary retention for the past two days. He also reports developing dizziness, chills and shortness for breath. Denies any chest pain. No nausea or vomiting. No other acute complaints. Summary: 10/05 - -year-old male with past medical history hypertension and dyslipidemia. initially presented with complaints of urinary retention. He states having urinary retention for the past two days. He also reports developing dizziness, chills and shortness for breath. . Patient feels better. No complaints of chest pain. Shortness of breath is resolving. CXR resolved. He endorses that his bladder never filled full. He recently had a URI and was taking [id number] cold and cough medications. Does not having any history of BPH. And his recent PSA levels have been normal. On labs he has neutrophilia, Troponinemia which is keeps worsening elevating to very high levels. Cardiology consulted and is considering left heart catheterization. ACS started. Cevallos was inserted, Urology was consulted. Urine is concerning for UTI patient is on antibiotics. Urology is unconcerning for acute urinary retention and wants to keep Cevallos inserted and have outpatient follow up. Flomax was started. Echocardiogram was done showing EF 40-45%, apex hypokinetic, normal RV, aortic sclerosis, left atria enlarged,. 10/06 - high troponins have plateaued out. Patient cough has improved. No CVA tenderness, . Sirs is resolving, sepsis is resolving. Continuing antibiotics as below. Cardiology remains concern for type 1 and ACS is continuing. Plan for possible left heart catheterization tomorrow. Patient wants to change code status to DNR DNI. We will continue present management and we will continue to follow up. 10/07- patient is taken to electronic lab technician for angiography. Revealing 99% stenosis of mid LAD. ventriculography showing 50% EF. 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 Cardiology recommends Uninterrupted 1 year of DAPT, and GDMT for HFmrEF. vital signs stable. Patient stable for discharge as per plan below. Discharge diagnosis: Acute coronary syndrome, resolved Troponinemia, type 1 s/p PTCA + MINISTERIO CAD, s/p MINISTERIO LAD, newly diagnosed HFmrEF Sepsis due to below Acute complicated cystitis with outflow obstruction Acute urinary retention, likely prostatic hyperplasia etiology benign prostatic hyperplasia, new diagnosis pneumonia possible, gram neg/gram pos possible Recent URI Acute gastroenteritis, infectious etiology possible Neutrophilia Anemia, normocytic Thrombocytopenia Febrile Tachycardia Tachypnea Discharge plan: - Continue GDMT for HFmrEF and uptitrate as tolerated. Continue valsartan 40, Jardiance 10mg, metoprolol succinate 25. outpatient close follow up with Cardiology to evaluate need for Aldactone and increasing valsartan to Entresto. - Continue DAPT (uninterrupted for one year), - lipid-lowering agent, - Keflex 500 mg twice daily for 5 days - keep Cevallos with leg bag, follow up with Urology 1 week for voiding trial, Urology nursing visit. Continue flomax 0.4 mg daily, finasteride 5 mg daily. - follow up with PCP to review discharge Condition at Discharge: Fair Final Diagnosis/Problems List Acute coronary syndrome, resolved Troponinemia, type 1 s/p PTCA + MINISTERIO CAD, s/p MINISTERIO LAD, newly diagnosed HFmrEF Sepsis due to below Acute complicated cystitis with outflow obstruction Acute urinary retention, likely prostatic hyperplasia etiology benign prostatic hyperplasia, new diagnosis pneumonia possible, gram neg/gram pos possible Recent URI Acute gastroenteritis, infectious etiology possible Neutrophilia Anemia, normocytic Thrombocytopenia Febrile Tachycardia Tachypnea Discharge Disposition: Home Discharge Instruct/Medications Diet: Cardiac 2g Na,low cholest Activity: No Restrictions, As Tolerated Follow Up/Referral: Cardiology, PCP, Urology Medications: See below Scheduled Aspirin (Aspirin), 81 MG PO DAILY Atorvastatin Calcium (Lipitor), 1 TAB PO DAILY Cephalexin Monohydrate (Cephalexin), 1 CAP PO BID Clopidogrel Bisulfate (Plavix), 1 TAB PO DAILY Empagliflozin (Jardiance), 10 MG PO DAILY Finasteride (Finasteride), 1 TAB PO DAILY Metoprolol Succinate (Metoprolol Succinate Er), 1 TAB PO DAILY Tamsulosin Hcl (Tamsulosin Hcl), 1 CAP PO DAILY Valsartan (Diovan), 1 TAB PO DAILY Miscellaneous Medications Hydrochlorothiazide W/Triamter (Hctz/Triamterene), (Reported) Discharge Statement: "Patient was advised to return to the ER or call 911 if any headaches, dizziness, shortness of breath, chest pain, abdominal pain, bleeding, fevers, or worsening of medical condition. Patient was counseled about treatment plan, medications, possible side effects, patientverbalized understanding. All questions were answered to the best of my ability. This discharge took greater then 30 minutes in planning, reviewing documentation, counseling the patient, and discussing with other team members." Date of Service: Oct 07, 2024 Billing Provider: JESSICA FRANKS MD Common Visit Codes: 40047-UTS/OBS DISCH DAY >30min JESSICA FRANKS MD Oct 07, 2024 16:47
--- NOTE | 2024-10-08 12:04 | ECG ---
[facility] Test Date: 2024-10-05 Test Time: 15:54:41 Pat Name: DOYLE SAUL Department: ED Room: 0233T A Gender: M Front Office Associate: gp : [id number] Requested By: INGRID CUENCA Order Number: [id number] Reading MD: Yunior Hickman Measurements Intervals [place] Rate: 78 P: 42 MI: 146 QRS: -43 QRSD: 91 T: 104 QT: 462 QTc: 527 Interpretive Statements Sinus rhythm Supraventricular bigeminy LVH with secondary repolarization abnormality Inferior infarct, old Probable anterior infarct, age indeterminate Electronically Signed On 10-08-2024 18:58:17 PDT by Yunior Hickman Please click the below link to view image of tracing.
== END 2024-10-07 19:40 | disposition home or self-care (01) | DRG 853 ==
LOC: ER 22:20 → EDBD 22:20 → OVERFLOW 10-05 03:16 → TELE-EAST 10-05 23:42
PROVIDERS: ADMIT Student in an Organized Health Care Education/Training Program; ATTEND Student in an Organized Health Care Education/Training Program
PROC: 4A023N7 Measurement of Cardiac Sampling and Pressure, Left Heart, Percutaneous Approach (ICD-10-PCS; principal; 2024-10-07)
PROC: 027034Z Dilation of Coronary Artery, One Artery with Drug-eluting Intraluminal Device, Percutaneous Approach (ICD-10-PCS; 2024-10-07)
PROC: B211YZZ Fluoroscopy of Multiple Coronary Arteries using Other Contrast (ICD-10-PCS; 2024-10-07)
PROC: B215YZZ Fluoroscopy of Left Heart using Other Contrast (ICD-10-PCS; 2024-10-07)
DX: A41.9 Sepsis, unspecified organism (principal); I21.4 Non-ST elevation (NSTEMI) myocardial infarction; J15.9 Unspecified bacterial pneumonia; J15.69 Pneumonia due to other Gram-negative bacteria; N30.00 Acute cystitis without hematuria; A09 Infectious gastroenteritis and colitis, unspecified; E87.1 Hypo-osmolality and hyponatremia; I50.20 Unspecified systolic (congestive) heart failure; E78.5 Hyperlipidemia, unspecified; D64.9 Anemia, unspecified; Z66 Do not resuscitate; I11.0 Hypertensive heart disease with heart failure; F17.210 Nicotine dependence, cigarettes, uncomplicated; N32.0 Bladder-neck obstruction; I25.10 Atherosclerotic heart disease of native coronary artery without angina pectoris; N40.0 Benign prostatic hyperplasia without lower urinary tract symptoms; D69.6 Thrombocytopenia, unspecified; Z95.5 Presence of coronary angioplasty implant and graft; Z79.899 Other long term (current) drug therapy
CPT/HCPCS: 36415; 71045; 71275; 76775; 80048; 80053; 80061; 81001; 83036; 83605; 83735; 83880; 84443; 84484; 85007; 85025; 85027; 85379; 85610; 85730; 87086; 87088; 87186; 92941; 93005; 93306; 93458; 96365; 96372; 99152; 99291; G0378; J2250; Q9967

== ENCOUNTER 2025-02-11 12:27 | Outpatient (CLI) | payer OTHER ==
[~2025-02-11 12:27] MED LIST changes: +ASPI1TAB19 PO; +ATOR-507 PO; +CEPH500C PO; +CLOP75TA28 PO; +EMPA1TAB PO; +FINA5TAB4 PO; +METO25TA93 PO; +TAMS0.4C39 PO; +VALS40TA2 PO
== END 2025-02-11 17:00 | disposition home or self-care (01) ==
LOC: LAB 12:27
PROVIDERS: ATTEND Dermatology
DX: Z01.812 Encounter for preprocedural laboratory examination (principal); D48.5 Neoplasm of uncertain behavior of skin